=== PATIENT | male | born 1965 | race Caucasian/White ===

== ENCOUNTER → 2024-02-20 11:05 | Outpatient (REF) | payer OTHER, SELFPAY | LOC: RAD 11:05 | PROVIDERS: ATTENDING PHYSICIAN Nurse Practitioner Family; FAMILY PHYSICIAN Family Medicine | DX: R22.42 Localized swelling, mass and lump, left lower limb (principal) | CPT/HCPCS: 93971 ==

== ENCOUNTER → 2024-03-10 13:17 | Outpatient (REF) | payer OTHER, SELFPAY | LOC: RCS 13:17 | PROVIDERS: ATTENDING PHYSICIAN Internal Medicine Cardiovascular Disease; FAMILY PHYSICIAN Family Medicine | DX: I34.1 Nonrheumatic mitral (valve) prolapse (principal); I34.0 Nonrheumatic mitral (valve) insufficiency | CPT/HCPCS: 93306 ==

== ENCOUNTER 2024-04-15 06:48 | Day surgery (SDC) | payer OTHER, SELFPAY ==
[2024-04-09 08:19] VITALS: BMI 32.7
== END 2024-04-15 09:11 | disposition home or self-care (01) ==
LOC: CATH 06:48
PROVIDERS: ATTENDING PHYSICIAN Internal Medicine; FAMILY PHYSICIAN Family Medicine; OTHER PHYSICIAN Internal Medicine Cardiovascular Disease
DX: I34.1 Nonrheumatic mitral (valve) prolapse (principal); I34.0 Nonrheumatic mitral (valve) insufficiency; I10 Essential (primary) hypertension; E78.5 Hyperlipidemia, unspecified; I25.10 Atherosclerotic heart disease of native coronary artery without angina pectoris; E11.9 Type 2 diabetes mellitus without complications; Z79.84 Long term (current) use of oral hypoglycemic drugs; Z95.5 Presence of coronary angioplasty implant and graft; Z79.82 Long term (current) use of aspirin; Z79.899 Other long term (current) drug therapy; G47.33 Obstructive sleep apnea (adult) (pediatric)
CPT/HCPCS: 93312; 93320; 93325; 93005

== ENCOUNTER 2024-04-24 06:24 | Day surgery (SDC) | payer OTHER, SELFPAY ==
[2024-04-24] VITALS (8 sets, daily range): BP systolic 113–136; BP diastolic 71–93; BMI 31.7; BMI 31.6
[2024-04-24] MEDS: LOW STRENGTH ASPIRIN 81 MG PO (07:31)
[2024-04-24 07:33] LABS: Glucose - Point of Care 91 mg/dl (70-99)
--- NOTE | 2024-04-26 09:10 | ITS.CL.CATH ---
Allergy Specialist - Catheterization
Cardiac Catheterization
Procedure Report:
CARDIAC CATHETERIZATION REPORT
Date of Procedure: 04/24/24
Referring: Dr. Dominic Ferraro MD
INDICATION: mitral regurgitation, coronary artery disease
PROCEDURE:
1. Left heart catheterization.
2. Coronary angiography.
ACCESS:
6 Dutch right radial artery.
CATHETERS:
1. 6 Dutch JR4.
2. 6 Dutch JL3.5
HEMODYNAMIC DATA
LVEDP ~20 mmHg with A-wave to 30 mmHg
CORONARY ANGIOGRAPHY
Dominance: right
Left Main: normal
LAD: gives rise to a three diagonal branches and wraps around the apex. There is a patent stent in the distal LAD and otherwise mild luminal irregularities.
LCx: gives rise to a small OM1 and large OM2. There is a widely patent stent extending from the proximal LCx into the large OM2 and otherwise mild luminal irregularities.
RAD: large vessel that gives rise to a large posterolateral system. There is a widely patent stent in the mid-RCA and otherwise mild luminal irregularities.
Closure Device: TR band
CONCLUSIONS
1. Non-obstructive coronary artery disease with patent stents in the LAD, LCx, and RCA.
2. Elevated LV filling pressure.
RECOMMENDATIONS:
1. Expectant management after cardiac catheterization via right radial approach.
2. Aggressive secondary prevention of coronary artery disease.
3. Proceed with planned mitral valve repair.
Copy to: Dr. Dominic Ferraro MD; BEATRIZ Fortune, [facility]
Signed: Ruben Pagan MD, PhD
== END 2024-04-24 11:03 | disposition home or self-care (01) ==
LOC: CATH 06:24
PROVIDERS: ATTENDING PHYSICIAN Student in an Organized Health Care Education/Training Program; FAMILY PHYSICIAN Family Medicine; OTHER PHYSICIAN Internal Medicine Cardiovascular Disease
DX: I34.0 Nonrheumatic mitral (valve) insufficiency (principal); I25.10 Atherosclerotic heart disease of native coronary artery without angina pectoris; Z95.5 Presence of coronary angioplasty implant and graft; I10 Essential (primary) hypertension; E78.5 Hyperlipidemia, unspecified; E11.9 Type 2 diabetes mellitus without complications; G47.33 Obstructive sleep apnea (adult) (pediatric); Z79.84 Long term (current) use of oral hypoglycemic drugs; Z79.82 Long term (current) use of aspirin; Z79.85 Long-term (current) use of injectable non-insulin antidiabetic drugs
CPT/HCPCS: 82962; 93458; C1894; Q9967

== ENCOUNTER → 2024-05-05 12:23 | Outpatient (REF) | payer OTHER, SELFPAY | LOC: RAD 12:23 | PROVIDERS: ATTENDING PHYSICIAN Thoracic Surgery (Cardiothoracic Vascular Surgery); FAMILY PHYSICIAN Family Medicine | DX: Z01.818 Encounter for other preprocedural examination (principal) | CPT/HCPCS: 71275; 74174; Q9967 ==

== ENCOUNTER 2024-05-15 05:21 | Inpatient (IN) | payer OTHER, SELFPAY ==
[2024-04-23 09:41] LABS: % Basophils 1.4 % (0-2); % Eosinophils 4.7 % (0-6); % Immature Granulocytes 0.3 % (0-0.5); % Lymphocytes 20.3 % (20.5-51.1); % Monocytes 7.1 % (1.7-9.3); % Neutrophils 66.2 % (42.2-75.2); Absolute Basophils 0.1 10^3/uL (0-0.2); Absolute Eosinophils 0.3 10^3/uL (0-0.7); Absolute Lymphocytes 1.4 10^3/uL (1.2-3.4); Absolute Monocytes 0.5 10^3/uL (0.1-0.6); Absolute Neutrophils 4.4 10^3/uL (1.4-6.5); Hemoglobin 15.1 g/dL (13.0-18.0); Mean Corp Hgb Conc. 33.6 g/dL (33.0-37.0); Mean Corpuscular Hgb 28.8 pg (27.0-31.0); Mean Corpuscular Volume 85.7 fL (80.0-94.0); Mean Platelet Volume 9.8 fL (7.4-10.4); Nucleated Red Blood Cells % 0 % (-); Platelet Count 205 10^3/uL (130-400); Red Blood Cell Count 5.25 10^6/uL (4.70-6.10); Red Cell Dist. Width 14.6 % (11.5-14.5); White Blood Cell Count 6.6 10^3/uL (4.8-10.8)
[2024-04-23 09:43] LABS: Urine Albumin Negative (Neg - Trace); Urine Bilirubin Negative (Negative); Urine Character Clear (Clear); Urine Color Yellow; Urine Glucose Negative (Negative); Urine Ketone 1+ (Negative); Urine Leukocyte Trace (Negative); Urine Nitrite Negative (Negative); Urine Occult Blood Negative (Negative); Urine Urobilinogen Negative (Neg - 1+)
[2024-04-23 09:49] LABS: PT 13.2 Sec (11.4-14.6)
[2024-04-23 09:50] LABS: APTT 29.7 Sec (23.4-35.0)
[2024-04-23 10:31] LABS: ALT (SGPT) 24 U/L (0-50); AST (SGOT) 25 U/L (17-59); Albumin 4.7 g/dl (3.5-5.0); Alkaline Phosphatase 81 U/L (38-126); Blood Urea Nitrogen 21 mg/dl (9-20); Calcium 9.7 mg/dl (8.4-10.2); Carbon Dioxide 24 mmol/L (22-30); Chloride 106 mmol/L (98-107); Direct Bilirubin 0.2 mg/dl (0.0-0.4); Glucose 92 mg/dl (70-99); Potassium 4.3 mmol/L (3.5-5.1); Sodium 138 mmol/L (135-145); Total Bilirubin 0.7 mg/dl (0.2-1.3); Total Protein 7.1 g/dl (6.3-8.2); eGFR > 60.00
[2024-04-23 10:33] LABS: Urine Mucus Few
[2024-04-23 10:34] LABS: Urine Squamous Cell 0-2 /LPF (Few); Urine Uric Acid Crystals Seen
[2024-04-23 10:35] LABS: Urine Red Blood Cell 0-2 /HPF (0-2); Urine White Cell 0-2 /HPF (0-5)
[2024-04-23 11:14] VITALS: BMI 30.1
[2024-04-23 12:23] LABS: Glycohemoglobin (HgbA1c) 5.2 % (4.0-5.6)
--- NOTE | 2024-04-23 16:10 | CM ---
spoke to pt in PAT's, he is prev indep, lives with his in a 2 story home with 1 step to enter. he denies any dc planning needs. he has the ct surgery bbok , soap and instructions. he is agreeable to a f/u visit from the ct transitional care
nurse after dc. cm role explained and all questions answered. plan is for MVR 05/25.
[2024-05-14 06:00] VITALS: BMI 29.7
[2024-05-15] VITALS (11 sets, daily range): BP systolic 98–142; BP diastolic 42–93; BMI 29.7
[2024-05-15] MEDS: PROTONIX 40 MG PO (06:12)
[2024-05-15] MEDS: BACTROBAN 2% OINTMENT 1 APPLIC NASAL ×2 (06:12→19:35)
[2024-05-15] MEDS: MAGNESIUM OXIDE 500 MG PO (06:12)
--- NOTE | 2024-05-15 06:21 | W.PN.UPDATE ---
Update Note
Progress Note Update
-preop BB is contraindicated d/t bradycardia (hr 58). Pt had his usual Toprol XL 25 mg last night.
--- NOTE | 2024-05-15 06:25 | W.CVOR.SURPR ---
CVOR Surgeon Immed Pre Op
-
I have examined this patient prior to performance of the scheduled procedure.
The patient's condition is unchanged from the time of the dictated/written History and
Physical and the patient is able to undergo the scheduled procedure.
MV Repair +/- KIRSTIN Clip (risks discussed vs benefts)
--- NOTE | 2024-05-15 06:38 | PTCARENOTE ---
Addendum entered by Gissel Campuzano RN 05/15/24 06:53:
Lopressor not given this am. Pt took Toprol XL dose at 2300 last night. HR 58-60. discussed with Willem BLANCHARD. Orders given to hold Lopressor PreOp.
Original Note:
Pt arrived to unit 0510. VS obtained. Pt clipped and prepped per CVICU/CVOR protocol. CHG wipes completed. Dr. Amaya in room at 0600. Preoperative medication given. Pt taken to CVOR at 0630.
[2024-05-15 07:12] LABS: ACT+ - POC 90 Seconds (82-134)
[2024-05-15 07:27] LABS: Urine Albumin Negative (Neg - Trace); Urine Bilirubin Negative (Negative); Urine Character Clear (Clear); Urine Color Yellow; Urine Glucose Negative (Negative); Urine Ketone 1+ (Negative); Urine Leukocyte Negative (Negative); Urine Nitrite Negative (Negative); Urine Occult Blood 3+ (Negative); Urine Specific Gravity 1.025 (<1.030); Urine Urobilinogen Negative (Neg - 1+)
--- NOTE | 2024-05-15 07:30 | PTCARENOTE ---
Received pt from [facility], walking rounds completed. Pt in bed for assessment. PT is AAOx3, Sinus Omer on monitor. V-wire rate 30-10-2.0 no pacer spikes noted, B/P 112/73, HR 50's, pulses palpable, generalized edema throughout. Lungs clear,
bilaterally diminished in bases. POX 97% on 2L, C/T dressing C/D/I, C/T drainage is red in appearance. Pham present, urine is clear, yellow. Hypoactive B/S. I/J cordis with slick catheter, L radial arterial line present, pressure bag and saline
flush. Flushes without difficulty, zeroed and calibrated, wave form within normal limits. Pain management with Oxycodone and IV Dilaudid. Plan of care discussed with pt, pt agrees with plan. Pt resting in bed, family at bedside. Assessment as
documented.
[2024-05-15 07:45] LABS: Urine Mucus Few
[2024-05-15 07:46] LABS: Urine Bacteria Few (Negative); Urine Red Blood Cell 26-30 /HPF (0-2)
--- NOTE | 2024-05-15 07:55 | W.PN.CD ---
Today's Communication / Plan
-
Surgery today.
Impression / Plan
-
Impression/Plan: 58 y/o male with HTN, HLD, CAD s/p prior PCI and MVP with severe MR admitted for elective MVR.
#MVP with severe MR
-Chronic, stable.
-Plan for MVR today.
-Anticipate routine post operative course.
-Wean vent to extubate.
-Wean pressors/inotropes for MAP > 65 mmHg, CI > 2.2.
-Pain/chest tube management per CTS.
#CAD
-Chronic, stable.
-Continue aspirin, atorvastatin and metoprolol when taking PO.
#HTN
-Chronic, stable.
-Adjust home medications post operatively.
#HLD
-Chronic, stable.
-Resume atorvastatin when taking PO.
-Goal LDL < 55.
#NIDDM
-Chronic, stable.
-Management per CTS (insulin gtt).
-Resume metformin when we are satisfied with stable renal function.
Subjective/Interval History:
Surgery today.
DATA:
Cardiac Catheterization, 04/26/2024:
CONCLUSIONS
1. Non-obstructive coronary artery disease with patent stents in the LAD, LCx, and RCA.
2. Elevated LV filling pressure.
FREDI, 04/15/2024:
CONCLUSIONS
-Mildly dilated left ventricle. Left ventricular ejection fraction is 60-65%.
-Minimally thickened mitral valve leaflets with moderate prolapse of the P2
segment with a subtle flail portion at the leaflet tip, causing likely severe,
eccentric (anteriorly directed) mitral regurgitation (Coanda effect is noted).
Physical Exam
Vital Signs/Labs
Vital Signs
BP Pulse Ox
142/93 95
05/15/24 05:22 05/15/24 05:21
05/13/24 05/14/24 05/15/24
11:59 11:59 11:59
Actual Weight 102.2 kg 102.2 kg
04/23/24 09:12
04/23/24 09:12
PT 13.2 Sec (11.4-14.6) 04/23/24 09:12
INR 1.00 04/23/24 09:12
APTT 29.7 Sec (23.4-35.0) 04/23/24 09:12
Physical Exam
Patient appears comfortable.
Remainder of exam deferred at Dr. Amaya's request.
Data Reviewed
-
Date of Service: May 15, 2024
Medical Decision Making: Reviewed Test Results, Test Interpretation and Review of Case with other Provider
EKG: Tracing Personally Visualized and interpreted and Report Reviewed by me
Echo: Report Reviewed by me
X-Ray/CT/US/MRI/NUC/PET: Image Personally Visualized and interpreted and Report Reviewed by me
Medical Tests (PFT, Pathology etc): Report Reviewed by me
Labs: Labs Reviewed by me
Old Records: Reviewed
[2024-05-15 09:05] LABS: B.E. - POC -1.1 mmol/L; Glucose - POC 97 mg/dl (70-99); HCO3 - POC 26 mmol/L (21-29); Hematocrit - POC 39 % PCV (42-52); Hemodilution- POC Yes; Hemoglobin Calculated - POC 13.3; Ionized Calcium - POC 1.27 mmol/L (1.12-1.27); PCO2 - POC 52 mmHg (35-45); PO2 - POC 116 mmHg (80-100); POC Comment PRE; Potassium - POC 3.7 mmol/L (3.6-5.0); Sodium - POC 143 mmol/L (135-145); pH - POC 7.31 (7.35-7.45)
[2024-05-15 09:35] LABS: B.E. - POC 0.6 mmol/L; Glucose - POC 149 mg/dl (70-99); HCO3 - POC 25 mmol/L (21-29); Hematocrit - POC 31 % PCV (42-52); Hemodilution- POC Yes; Hemoglobin Calculated - POC 10.4; Ionized Calcium - POC 1.07 mmol/L (1.12-1.27); O2 Saturation %Calculated-POC 99.9 5 (92-96); PCO2 - POC 37 mmHg (35-45); PO2 - POC 333 mmHg (80-100); POC Comment CPB; Potassium - POC 5.1 mmol/L (3.6-5.0); Sodium - POC 139 mmol/L (135-145); pH - POC 7.44 (7.35-7.45)
[2024-05-15 10:00] LABS: ACT+ - POC 791 Seconds (82-134)
[2024-05-15 10:00] LABS: ACT+ - POC 902 Seconds (82-134)
[2024-05-15 10:10] LABS: B.E. - POC -0.4 mmol/L; Glucose - POC 145 mg/dl (70-99); HCO3 - POC 25 mmol/L (21-29); Hematocrit - POC 33 % PCV (42-52); Hemodilution- POC Yes; Hemoglobin Calculated - POC 11.4; Ionized Calcium - POC 1.13 mmol/L (1.12-1.27); O2 Saturation %Calculated-POC 98.4 5 (92-96); PCO2 - POC 41 mmHg (35-45); PO2 - POC 113 mmHg (80-100); POC Comment CPB; Potassium - POC 4.2 mmol/L (3.6-5.0); Sodium - POC 140 mmol/L (135-145); pH - POC 7.39 (7.35-7.45)
[2024-05-15 10:22] LABS: ACT+ - POC 537 Seconds (82-134)
--- NOTE | 2024-05-15 10:55 | CM ---
pt in OR today, cm to follow.
[2024-05-15 11:03] LABS: B.E. - POC -1.8 mmol/L; Glucose - POC 161 mg/dl (70-99); HCO3 - POC 26 mmol/L (21-29); Hematocrit - POC 36 % PCV (42-52); Hemodilution- POC Yes; Hemoglobin Calculated - POC 12.4; Ionized Calcium - POC 1.16 mmol/L (1.12-1.27); O2 Saturation %Calculated-POC 99.8 5 (92-96); PCO2 - POC 54 mmHg (35-45); PO2 - POC 248 mmHg (80-100); POC Comment WARM; Potassium - POC 4.2 mmol/L (3.6-5.0); Sodium - POC 144 mmol/L (135-145); pH - POC 7.29 (7.35-7.45)
[2024-05-15 11:06] LABS: ACT+ - POC 96 Seconds (82-134)
[2024-05-15 11:17] LABS: B.E. - POC -4.1 mmol/L; Glucose - POC 121 mg/dl (70-99); HCO3 - POC 22 mmol/L (21-29); Hematocrit - POC 36 % PCV (42-52); Hemodilution- POC Yes; Hemoglobin Calculated - POC 12.2; Ionized Calcium - POC 1.29 mmol/L (1.12-1.27); PCO2 - POC 44 mmHg (35-45); PO2 - POC 77 mmHg (80-100); POC Comment POST; Potassium - POC 3.6 mmol/L (3.6-5.0); Sodium - POC 143 mmol/L (135-145); pH - POC 7.31 (7.35-7.45)
[2024-05-15 11:25] LABS: B.E. - POC -15.5 mmol/L; Glucose - POC 40 mg/dl (70-99); HCO3 - POC 10 mmol/L (21-29); Hematocrit - POC 15 % PCV (42-52); Hemodilution- POC Yes; Hemoglobin Calculated - POC 5.1; Ionized Calcium - POC 0.46 mmol/L (1.12-1.27); O2 Saturation %Calculated-POC 74.2 5 (92-96); PCO2 - POC 22 mmHg (35-45); PO2 - POC 43 mmHg (80-100); POC Comment MIXED VENOUS; Potassium - POC 4.4 mmol/L (3.6-5.0); Sodium - POC 130 mmol/L (135-145); pH - POC 7.27 (7.35-7.45)
--- NOTE | 2024-05-15 11:28 | W.PN.CT.SURG ---
Addendum entered and electronically signed by Anton Amaya MD 05/15/24 11:52:
Procedure(s) Performed:
1. Right mini thoracotomy with right common femoral artery and left common femoral vein cannulation under FREDI guidance
2. Radical mitral valve repair (34 mm band annuloplasty, triangular resection of P2 into P1, reapproximation of P1 and P2 primarily, single [place]-Roland cord placed at the anterior lateral papillary muscle head to the P1 P2 segment)
3. Placement temporary ventricular pacing wires
4. Trans esophageal echocardiography
5. Left atrial appendage exclusion (first a 35 mm clip was applied which appeared to be too small, I then place a 45 mm clip to follow which had good result)
Date of Surgery: 05/15/2024
Original Note:
CT Surgery Operative Note
-
CARDIAC SURGERY OPERATIVE REPORT
Preoperative Diagnosis: Myxomatous mitral valve degeneration with severe insufficiency, symptomatic
Postoperative Diagnosis: Same
Procedure(s) Performed:
1. Right mini thoracotomy with right common femoral artery and left common femoral vein cannulation under FREDI guidance
2. Radical mitral valve repair (36 mm band angioplasty, dry resection of P2 into P1, reapproximation of P1 and P2, single [place]-Roland cord placed at the anterior lateral papillary muscle head to the P1 P2 segment)
3. Placement temporary ventricular pacing wires
4. Trans esophageal echocardiography
5. Left atrial appendage exclusion (first a 35 mm clip was applied which appeared to be too small, I then place a 45 mm clip to follow which had good result)
Date of Surgery: 05/15/2020
Comorbidities:
1. 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
2. Severe mitral valve insufficiency, symptomatic
3. Dilated left atrium and annulus
4. History of coronary artery disease with multiple stents in the past, previous ID
5. Sleep apnea on CPAP
6. Nephrolithiasis
7. History of GI bleed
8. Hypertension
9. Hyperlipidemia
10. Non-insulin diabetes mellitus
Attending Surgeon: Anton Amaya MD, MS
Assistants: Annelise Zhao PA-C (present and necessary for retraction, suctioning, exposure, suture management, wound closure, etc. under my direction)
Anesthesiology: Arvin Georges MD and Harika Sevilla CRNA
Scrub and Circulating RNs: Chico Reyes, RN, Charlotte Huber, RN
Rate Clerk: Annelise Bess CCP
Anesthesia: GETA
EBL: per perfusion records
Products: None
CPB Time: 126 minutes
Aortic Cross Clamp Time: 95 minutes
Indication(s) for Procedures: This is a 58-year-old male with known mitral valve insufficiency. He has a significant history for multivessel coronary disease status post multiple stents in the past. He recent underwent a transesophageal
echocardiogram demonstrated worsening mitral valve insufficiency consistent with myxomatous degeneration and prolapse of the P2 into P1 segment along with a flail leaflet with multiple torn cords. His symptoms are relatively mild, he states that he
feels significant better after losing a lot of weight and controlling his A1c. Given the severity of his mitral valve insufficiency, the very repairability of his valve, he meets stage C symptomatology and therefore class II indication for mitral
valve intervention.
Mitral Valve Description: Degenerative mitral valve disease with significant prolapse of P2 into the P1 scallop along with multiple torn cords. There is bileaflet thickening. There is also asymmetric dilation of his annulus in the large left
atrium.
Implants:
1. 34mm REYNOLDS Physio Flex, SN [id number]
2. 35mm KIRSTIN Clip, SN [id number]
3. 45mm KIRSTIN Clip, SN [id number]
4. Single CV 4-0 Goretex
Specimen:
1. P2 Scallop
Findings: His left ventricular ejection fraction preoperatively was 60% with no regional wall motion abnormalities. Following surgery his EF remained the same at 60% with no new regional wall motion abnormalities. A [place] was unable to be floated
at the beginning of the case and so we left it out. His mitral valve was repaired using a combination of root triangular resection of P2 into P1 and then reapproximation of the leaflets primarily using 5-0 Prolene in interrupted fashion. An
additional CV 4 [place]-Roland cord was placed to the anterolateral And muscle head to the P1 P2 segment as a support structure. A total 11 nonpledgeted 2 Ethibond sutures were placed along the annulus from trigone to trigone and secured a 34 mm band
using core knots. Dynamic inflation of the left ventricle demonstrated a good coaptation margin does relatively posterior and of appropriate height when the ink test was applied. His left atrial appendage was verified to be free of any thrombus or
debris preoperatively. Initially I placed a 35 mm clip across his base however this was insufficient at length. A new 45 mm clip was then applied with good effect. After coming off of cardiopulmonary bypass, there is no residual mitral valve
insufficiency, no systolic anterior motion of the leaflets, no regional wall motion abnormalities. The mean gradient across the mitral valve is 1 mmHg. He did not require any inotropic support. He did not require any blood products. He was in
sinus rhythm.
Description of Procedure: The patient was brought to the operating room and placed supine in the table with their right side bumped up and right arm down. Arterial and central access was performed by anesthesiology. The patient was prepped from chin
to toes in the typical sterile fashion. Trans esophageal evaluation of cardiac function and all valvular structures was conducted. Before commencing, a time out was performed by all members of the team. All were in agreement with the procedure and
laterality and I proceeded. A small right groin incision was made to expose the common femoral artery and and I percutaneously accessed the left common femoral vein using micropuncture and ultrasound with Seldinger technique. A total of 55,000 units
of heparin was given. A 5-6 cm right lateral thoracotomy was performed over the 4th intercostal space verified by visualization of the hilum. The common femoral artery and vein were cannulated under transesophageal guidance using Seldinger
technique. The arterial line was verified to have an appropriate bounce and pressure correlating with testing. Once the ACT was above 400, retrograde autologous priming was done and we commenced cardiopulmonary bypass. Target core temperature was
34�C.
Carbon dioxide was used to flood the field. The course of the phrenic nerve was identified to prevent injury. The pericardium was opened and two stay sutures were placed to facilitate a ``pericardial table.�� The oblique sinus was developed followed
by the inter atrial groove. An antegrade root vent was inserted and secured with a pursestring suture. The pump flow and mean arterial pressure were lowered and an aortic cross clamp was applied to the ascending aorta. A total of 1.2L initial dose
of Antegrade cardioplegia was delivered. We had rapid electro myocardial quiescence at 300 cc of cardioplegia. The ventricle was monitored for distension by echocardiogram during this time. The left atrium was incised and enlarged. Next I looked
through the transverse sinus and elevated the aorta anteriorly. The left atrial pannus was visualized and clipped accordingly A left atrial lift retractor was placed. The mitral valve was inspected. The mitral valve was repaired as described above.
The left atriotomy was closed with 3-0 prolene in a running fashion leaving a ventricular vent in place to de-air. After filling the heart, the vent was removed and the prolene was secured with a corknot. Unipolar ventricular pacing wire was placed
on the base of the right ventricle. The patient was placed into Trendelenburg position and pump flows were lowered. The clamp was slowly removed with the root vent turned on. De-airing maneuvers were performed. We started to rewarm with a target of
36.5�C.
As the heart recovered, the mitral valve and ventricular function were assessed under transesophageal echocardiogram. The LV vent and root vents were removed. Once weaning parameters were satisfactory, cardiopulmonary bypass flow was lowered until
we were off cardiopulmonary bypass the mitral valve was inspected again. All surgical sites were inspected for hemostasis and appeared appropriate. The lines were clamped and the arterial was relocated to the venous cannula to give back volume. A
test dose of protamine was delivered and patient was monitored for any adverse reactions followed by complete protamine dosing. The femoral vessels were decannulated and repaired as indicated. The pericardium was approximated with 2-0 ethibond
sutures secured with corknots. One 19F Polo drain remained in the pleural space and threaded into the pericardium. There was an excellent palpable distal to the [employer]ORDIN[employer] cannulation site. Local analgesia was injected to the thoracotomy. The incision was
closed in layers in a running fashion.
All instrument, sponge, and needle counts were confirmed to be correct x 2 at the end of the operation. The patient was transferred to the cardiac intensive care unit in critical but stable condition.
I, Dr. Anton Amaya, was present, scrubbed for, and performed all critical elements of this procedure.
Anton Amaya MD, MS
Cardiothoracic Surgeon
[facility]
This dictation was created using the [employer] dictation system. Please excuse any grammatical, typographical, or 'sound alike' errors
[2024-05-15 11:46] LABS: Glucose - Point of Care 118 mg/dl (70-99)
[2024-05-15] MEDS: NEURONTIN PO (11:55)
[2024-05-15] MEDS: ANCEF 10 IV ×2 (11:55)
[2024-05-15] MEDS: NOVOLOG FLEXPEN SC ×3 (11:55→15:57)
[2024-05-15 11:56] LABS: Hemoglobin 13.5 g/dL (13.0-18.0); Platelet Count 172 10^3/uL (130-400)
[2024-05-15] MEDS: NSS 500 IV (11:56)
[2024-05-15] MEDS: SENOKOT-S PO ×2 (11:56→15:33)
[2024-05-15 12:00] LABS: B.E. -2.1 mmol/L; HCO3 24.7 mmol/L (21-28); Ionized Calcium 1.26 mMOL/L (1.15-1.33); O2 Saturation % 98.3 % (94-98); PCO2 49 mmHg (35-48); PO2 105 mmHg (83-108); Potassium 4.3 mMOL/L (3.5-5.1); Sodium 137 mMOL/L (136-145); pH 7.31 (7.35-7.45)
--- NOTE | 2024-05-15 12:00 | PTCARENOTE ---
Patient received from CVOR s/p HP MV repair. VSS - SB via cm, SaO2 @ 100% on ventilator, titrating FiO2 as able. RIJ Cordis w/slic extension (CVP transduced), L radial arterial line - leveled, flushed, and calibrated w/good waveforms returned.
Epicardial V-wire to pulse generator, off. R pleural chest tube to -20cm suction, no air leak noted. Pham catheter to gravity. All procedural sites stable. See work list for full assessment, interventions performed, and intravenous infusions and
titrations.
[2024-05-15 12:06] LABS: INR 1.37; PT 16.7 Sec (11.4-14.6)
[2024-05-15 12:07] LABS: APTT 26.8 Sec (23.4-35.0)
[2024-05-15] MEDS: DILAUDID 0.5 MG IV ×3 (12:16→21:19)
[2024-05-15 12:22] LABS: Mixed Venous O2 Saturation 77.8 %
[2024-05-15] MEDS: DEMEROL 12.5 MG IV (12:44)
[2024-05-15 12:48] LABS: Blood Urea Nitrogen 21 mg/dl (9-20); Estimated Creatinine Clearance 83 ml/min; Glucose 124 mg/dl (70-99); Magnesium 3.7 mg/dl (1.6-2.3)
[2024-05-15 13:01] LABS: Glucose - Point of Care 151 mg/dl (70-99)
[2024-05-15 13:07] LABS: B.E. -4.7 mmol/L; HCO3 20.4 mmol/L (21-28); O2 Saturation % 98.6 % (94-98); PCO2 37 mmHg (35-48); PO2 93 mmHg (83-108); pH 7.35 (7.35-7.45)
--- NOTE | 2024-05-15 13:17 | W.PN.UPDATE ---
Update Note
Progress Note Update
IV fluids: 1300
U.O.:� 450
Blood:� none
Wires:� 2 V-wires
Gtts:� Insulin @ 0.5, Precedex @ 0.5
�
NEURO: sedated on Precedex, pupils +2mm B/L
RESP: #8OT @24cm> 500/60%/14/10. Lungs clear B/L. R pleural (5cc on arrival) chest tubes to -20cm suction. Sanguineous drainage
CV: RRR +S1, S2, no S3, no�rub, no murmur. Dermabond to right mini thoracotomy. RIJ w/[place]
ABD: round, soft, no BS
EXT: no edema, +2/4 DP pulses B/L, no femoral bruit; B/L femoral cannulation sites intact (left groin with stitch intact);left radial A-line intact
: Pham with clear yellow urine
�
A/P: POD #0 s/p Radical mitral valve repair (#34 mm band annuloplasty, triangular resection of P2 into P1, reapproximation of P1 and P2 primarily, single [place]-Roland cord placed at the anterior lateral papillary muscle head to the P1 P2 segment); Left
atrial appendage exclusion (#45 mm clip)
FREDI: EF�%%%, no MR, MV 4/1mmHg
- wean and extubate
- continue ASA for mitral repair
- CUT TEMPORARY PACING WIRES+++
- will need instruction regarding antibiotic prophylaxis for dental and invasive procedures
- Left groin suture needs to be removed prior to discharge++++
�
# HTN
- resume Amlodipine as BP permits
�
# T2DM (A1C 5.2)
- insulin infusion x 24h and transition to SSI
- resume Metformin/Mounjaro
�
# Hyperlipidemia
- resume�Lipitor 80mg daily
--- NOTE | 2024-05-15 13:23 | RESPNOTE ---
Patient extubated to a 6L nasal cannula following CPAP trial and ABG. IS instruction completed
--- NOTE | 2024-05-15 13:25 | PTCARENOTE ---
Patient displayed evidence overbreathing ventilator - CPAP wean initiated. No apnea noted, good TV, good SaO2. ABG obtained, results conveyed to TAMIKO Cher. Patient extubated to 6lnc w/out incident.
--- NOTE | 2024-05-15 13:40 | CON.INTV ---
Consultation
Consultation Request
Date/Time Consultation Requested: 05/15
Date/Time Consultation Performed: 05/15
Reason for Consultation: Critical care
Medical History
-
History of Present Illness:
History primarily obtained from the chart, reviewing outpatient records, history from patient and at bedside. Patient is a 58-year-old male with with history of multivessel coronary disease with multiple stents in the past mitral valve
prolapse. Workup revealed worsening mitral valve disease, with small flail segment. EF was normal. Cardiac catheterization revealed nonobstructive coronary disease with patent stents. He did have elevated filling pressures. Patient underwent
right minithoracotomy with right common femoral and left common femoral cannulation, radical mitral valve repair with band annuloplasty, [place]-Roland cord placed. Left atrial appendage exclusion clip. Patient is presently extubated, answering
questions. at bedside. Patient is not requiring pressors. We are asked to help from critical care standpoint
.
PMH: Oral history of coronary disease, status post 4 stents, nephrolithiasis, umbilical hernia, hypertension, hyperlipidemia, non-insulin diabetes improved with weight loss, sleep apnea on CPAP
Past Medical History
Past Medical History: None (See above)
Past Surgical History: None (See above)
Social History
Tobacco: Non-smoker
Alcohol: Occasional
Drug: None
Personal:
Living: With Family
Employment: Employed (Sales)
Family History
Family History: Other (Father age 75, mother age 81. Siblings and children healthy)
Allergies / Home Medications
Allergies
Allergy/AdvReac Type Severity Reaction Status Date / Time
No Known Allergies Allergy Verified 04/24/24 07:37
Home Medications
�Medication �Instructions �Recorded �Confirmed �Last Taken �Type
nitroglycerin 0.4 mg sublingual 0.4 mg sublingual [id number] PRN 10/11/16 04/24/24 11/19/16 15:00 Rx
tablet chest pain or SBP > 150 mmHg #25 mg
metoprolol tartrate 25 mg tablet 25 mg PO HS Blood Pressure 01/29/20 05/15/24 05/14/24 History
1700
amlodipine 10 mg tablet 10 mg PO HS BLOODPRESSURE 04/06/24 05/15/24 05/12/24 23:00 History
atorvastatin 80 mg tablet 80 mg PO HS CHOLESTEROL 04/06/24 05/15/24 05/14/24 17:00 History
metformin 1,000 mg tablet 1,000 mg PO QPM DM 04/06/24 05/15/24 05/13/24 23:00 History
tirzepatide 2.5 mg/0.5 mL 2.5 mg SC MO WEIGHT LOSS, DM 04/06/24 05/15/24 05/06/24 17:00 History
subcutaneous pen injector
(Liu)
aspirin 81 mg chewable tablet 81 mg PO HS BLOOD THINNER 04/21/24 05/15/24 05/14/24 History
1700
CoQ-10 caplet PO DAILY 05/15/24 05/14/24 17:00 History
fiber 05/15/24 05/14/24 History
1700
multivitamin 05/15/24 05/14/24 History
0800
Review of Systems
Vitals / Labs / Diagnostic Testing
Vital Signs
Temp Pulse Resp BP Pulse Ox
98.6 F 64 17 125/78 97
05/15/24 13:00 05/15/24 13:02 05/15/24 13:00 05/15/24 12:02 05/15/24 13:02
Lab Data
05/15/24 11:44
Laboratory Results
05/15/24 05/15/24
11:44 13:01
PT 16.7 H
INR 1.37
APTT 26.8
pH 7.31 L 7.35
pCO2 49 H 37
pO2 105 93
HCO3 24.7 20.4 L
O2 Delivery Level
Diagnostic Testing:
Physical Exam
-
HEENT: Normocephalic, Anicteric and Other (Right IJ)
Cardiovascular: S1/S2, Regular Rhythm, Murmur (n) and Rub (n)
Respiratory: Wheeze (n), Rales (n), Rhonchi (n) and Non-Labored Respirations
GI: Soft and Non Distended
Neurology: Awake (Waking up from anesthesia)
Skin: Good Color and Other (No clubbing)
General: Comfortable
Assessment
-
58-year-old male with history of hypertension, hyper lipidemia, coronary disease with history of bypass surgery, now presents with worsening mitral regurgitation, torn cord status post radical mitral valve repair, left atrial clip 05/15/2024
S/p radical mitral valve repair
05/15/2024
Mitral regurgitation, torn cord
History of coronary disease with complex stents
recent catheterization 04/24/2024, nonobstructive disease
Patent stents
Conditions present prior to admission
Hypertension/hyperlipidemia
History of diabetes, improved with weight loss
Sleep apnea on CPAP therapy
History of nephrolithiasis
History of rectal bleed
50 pound weight loss, intentional
Plan/recommendations
At this time, patient appears to be critically ill but stable. He is extubated. He is conversing able to provide history
Chest x-ray unremarkable
EKG with nonspecific changes
Hemoglobin stable at 13.5
Chest tube with minimal output
Moving forward
Continue with supportive care per CT surgery
Patient looks remarkably well, conversing
Incentive spirometry, airway clearance, pain control
Patient does feel comfortable with his nasal CPAP mask
He can use this at his leisure, okay to connect to hospital BiPAP
Consider 06/13
Unaware of outpatient settings
Can resume CPAP upon discharge
Patient was last seen in the sleep clinic 2017
Has a new machine after recent recall
Followed by primary physician
Reviewed with critical care nursing, at bedside
Will follow
[2024-05-15] MEDS: TYLENOL PO (13:54)
[2024-05-15] MEDS: OFIRMEV 100 IV (13:57)
[2024-05-15 14:01] LABS: Glucose - Point of Care 133 mg/dl (70-99)
[2024-05-15 14:28] LABS: ACT+ - POC > 1003 Seconds (82-134)
[2024-05-15 15:04] LABS: Glucose - Point of Care 127 mg/dl (70-99)
[2024-05-15] MEDS: ROXICODONE 5 MG PO ×3 (15:12→23:57)
[2024-05-15] MEDS: LOW STRENGTH ASPIRIN 81 MG PO (15:12)
[2024-05-15] MEDS: PACERONE PO (15:42)
[2024-05-15 16:04] LABS: Glucose - Point of Care 118 mg/dl (70-99)
[2024-05-15 16:15] LABS: Hematocrit 37.9 % (39.0-52.0); Hemoglobin 12.9 g/dL (13.0-18.0); Platelet Count 155 10^3/uL (130-400)
[2024-05-15] MEDS: NEURONTIN 100 MG PO ×2 (16:58→21:22)
[2024-05-15] MEDS: ANCEF 5 IV (17:00)
[2024-05-15 18:01] LABS: Glucose - Point of Care 99 mg/dl (70-99)
[2024-05-15] MEDS: DILAUDID 0.25 MG IV ×2 (19:36→23:12)
[2024-05-15 20:08] LABS: Glucose - Point of Care 123 mg/dl (70-99)
[2024-05-15] MEDS: LIPITOR 80 MG PO (21:22)
[2024-05-15] MEDS: PACERONE 200 MG PO (21:23)
[2024-05-15] MEDS: TYLENOL 1000 MG PO (21:23)
[2024-05-15] MEDS: SENOKOT-S 1 TABLET PO (21:23)
[2024-05-15 22:42] LABS: Glucose - Point of Care 88 mg/dl (70-99)
[2024-05-15] MEDS: LR 250 ML IV (23:05)
--- NOTE | 2024-05-15 23:43 | PTCARENOTE ---
VSS. Sinus Omer with occasional PAC's on the monitor. Pt complaining of post surgical pain, pain mgnt given per protocol (see MAR). Pt in bed resting. Nursing assessment unchanged from prior.
[2024-05-15 23:55] LABS: Glucose - Point of Care 95 mg/dl (70-99)
[2024-05-16] VITALS (20 sets, daily range): BP systolic 102–140; BP diastolic 58–86; PULSE 56; O2SAT 94–98
[2024-05-16 02:06] LABS: Glucose - Point of Care 102 mg/dl (70-99)
[2024-05-16] MEDS: ANCEF 5 IV ×2 (02:07→10:12)
[2024-05-16] MEDS: DILAUDID 0.5 MG IV (02:08)
[2024-05-16] MEDS: DILAUDID 0.25 MG IV (03:42)
[2024-05-16 04:04] LABS: Glucose - Point of Care 94 mg/dl (70-99)
[2024-05-16 04:45] LABS: Hematocrit 37.7 % (39.0-52.0); Hemoglobin 12.6 g/dL (13.0-18.0); Mean Corp Hgb Conc. 33.4 g/dL (33.0-37.0); Mean Corpuscular Hgb 28.3 pg (27.0-31.0); Mean Corpuscular Volume 84.7 fL (80.0-94.0); Mean Platelet Volume 10.5 fL (7.4-10.4); Platelet Count 153 10^3/uL (130-400); Red Blood Cell Count 4.45 10^6/uL (4.70-6.10); Red Cell Dist. Width 14.7 % (11.5-14.5); White Blood Cell Count 15.1 10^3/uL (4.8-10.8)
--- NOTE | 2024-05-16 05:07 | PTCARENOTE ---
VSS, Pt in Sinus Omer with occasional PAC's. Pt given CHG bath and linens changed. Am lab work collected and sent. ECG completed. Portable chest xray to be completed. gunnar Pedro to be d/c'ed. Pt OOB to chair in am. Assessment and interventions
as documented.
[2024-05-16 05:10] LABS: Blood Urea Nitrogen 23 mg/dl (9-20); Calcium 8.9 mg/dl (8.4-10.2); Carbon Dioxide 20 mmol/L (22-30); Chloride 107 mmol/L (98-107); Estimated Creatinine Clearance 91 ml/min; Glucose 88 mg/dl (70-99); Magnesium 2.3 mg/dl (1.6-2.3); Potassium 4.5 mmol/L (3.5-5.1); Sodium 140 mmol/L (135-145); eGFR > 60.00
[2024-05-16] MEDS: ROXICODONE 5 MG PO ×2 (05:15→13:13)
[2024-05-16] MEDS: TYLENOL 1000 MG PO ×3 (05:16→21:34)
--- NOTE | 2024-05-16 05:29 | W.PN.CT ---
Today's Communication / Plan
-
-pod #1
-no significant issues overnight
-sinus adonay 50s with PACs and intermittent junctional rhythm- will hold BB and Amio
-drips: insulin
-CT output: R pleur 120/225 in 12/24 hrs, no air leak
-d/c slic
-d/c Pham
-continue insulin
-current meds (ASA, Lipitor, Protonix). Holding BB and Amio d/t adonay
-encourage IS, OOB
Assessment / Plan
-
- Severe symptomatic MR - s/p Right mini thoracotomy with Radical mitral valve repair (34 mm band annuloplasty); LAAE with 45 mm clip on 05/15/[address] Amaya, pod #1
- intraop FREDI: LVEF 60% preop and post with no wma. There was no residual mitral valve insufficiency, no systolic anterior motion of the leaflets, no regional wall motion abnormalities. The mean gradient across the mitral valve is 1 mmHg.
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
- Severe mitral valve insufficiency, symptomatic
- Dilated left atrium and annulus
- History of coronary artery disease with multiple stents in the past, previous MA
- Sleep apnea on CPAP
- Nephrolithiasis
- History of GI bleed
- Hypertension
- Hyperlipidemia
- Non-insulin diabetes mellitus (A1c 5.2)
- Acute postop blood loss anemia - stable, no transfusion
- Acute postop atelectasis
- Acute postop hypovolemia with subsequent hypervolemia
Discussed patient care with: Nursing and Care Team
Subjective
Procedure
- s/p Right mini thoracotomy with Radical mitral valve repair (34 mm band annuloplasty); LAAE with 45 mm clip on 05/15/[address] Amaya
-
Date of Service: May 15, 2024
Objective Data
-
Lab Results
05/15/24 16:02
05/15/24 11:44
PT 16.7 Sec (11.4-14.6) H 05/15/24 11:44
INR 1.37 05/15/24 11:44
APTT 26.8 Sec (23.4-35.0) 05/15/24 11:44
Vital Signs
Vital Signs
Temp Pulse Resp BP Pulse Ox
98.7 F 65 16 109/81 97
05/15/24 22:44 05/15/24 23:10 05/15/24 23:00 05/15/24 22:44 05/15/24 23:10
CT Intake/Output/Weight
05/15/24 05/15/24 05/16/24
06:59 18:59 06:59
Intake Total 300.8 / 387.6 86.8 / 387.6
Output Total 615 / 760 145 / 760
Balance -314.2 / -372.4 -58.2 / -372.4
SaO2: 97
Physical Exam
-
General: Awake and AOx3
Cardiovascular: Regular rate & rhythm, No Murmurs and No Rub
Respiratory: Decreased Breath Sounds
Sternum: Stable
Incision: Clean, Dry and Intact
Extremities: No Edema
Data Reviewed
-
Lab Results: Results Reviewed
Medications: Active Meds Reviewed
Chest X-Ray: Report Reviewed and Image Reviewed
ECG: Report Reviewed and Image Reviewed
[2024-05-16 06:12] LABS: Glucose - Point of Care 113 mg/dl (70-99)
--- NOTE | 2024-05-16 07:59 | W.PN.ANS.POP ---
Anesthesia Post Operative
- Anesthesia Post Op Note
Vital Signs Stable-See Nursing Note: Yes
Airway Patent: Yes
Adequate Pain Control: Yes
Change in Mental Status: No
Current Postoperative Nausea & Vomiting: No
Anesthesia Complications: No
General Anesthetic Recall: No
Unplanned Admission: No
Post Op Hydration Adequate: Yes
--- NOTE | 2024-05-16 08:18 | W.PN.INTV ---
Today's Communication / Plan
Recommendations
Pain control
Up OOB as tolerated
Encourage incentive spirometer use 10x/hr for at least 4 hrs a day
Patient has now been transferred to CVICU�telemetry. Accounting File Clerk/Pulmonary service will now sign off. Please reconsult if there are any additional questions/concerns, or if patient's respiratory status deteriorates.
Assessment
-
58-year-old male with history of hypertension, hyper lipidemia, coronary disease with history of bypass surgery, now presents with worsening mitral regurgitation, torn cord status post radical mitral valve repair, left atrial clip 05/15/2024
S/p radical mitral valve repair + KIRSTIN�exclusion
OR date: 05/15/2024
Mitral regurgitation, torn cord
History of coronary disease with complex stents
recent catheterization 04/24/2024, nonobstructive disease
Patent stents
Conditions present prior to admission
Hypertension/hyperlipidemia
History of diabetes, improved with weight loss
Sleep apnea on CPAP therapy
History of nephrolithiasis
History of rectal bleed
50 pound weight loss, intentional
Plan/recommendations
At this time, patient is stable, on room air breathing comfortably and off of insulin drip and chest tubes have been removed.
Chest x-ray from today shows mild bibasilar subsegmental atelectasis
EKG from today shows sinus bradycardia with ventricular rate of 51 bpm
Hemoglobin stable at 12.6
Chest tubes removed today
Moving forward
Continue with supportive care per CT surgery
Patient looks remarkably well, conversing, is on room air breathing comfortably; he feels much better with his chest pain/back pain since the chest tubes were removed
Incentive spirometry encouraged, airway clearance, pain control
Continue with CPAP with sleep
Unaware of outpatient settings
Can resume his home CPAP upon discharge
Patient was last seen in the sleep clinic 2017
Has a new machine after recent recall
Followed by primary physician
Reviewed with critical care nursing, /daughters at bedside
[facility] Accounting File Clerk/Pulmonary service will now sign off. Thank you for allowing us to be involved in the care of this patient. Please reconsult if there are any additional questions/concerns, or if
patient's respiratory status deteriorates.
Total time spent today was 55 minutes for this encounter. Time includes reviewing laboratory test/imaging results, reviewing pertinent medical records, obtaining and reviewing medical history, performing an appropriate exam, ordering medications,
tests and procedures. Time also includes documentation of this encounter, coordinating patient care and communicating with other healthcare professionals. Total time does not include separately billed tests performed on this date of service.
Subjective Dataa
Subjective Data
Date of Service:
Date of Service: May 16, 2024
Chief Complaint: Accounting File Clerk Follow Up and Pulmonary Follow Up
Subjective:
Patient seen and evaluated this morning at bedside. He feels well although had difficulty urinating earlier this morning. Chest tubes removed today. He said that he had chest discomfort during the night and that is now gone since the chest tubes
have been removed. Insulin drip weaned off. He is on room air saturating 94%. Heart rate 67 and BP 107/71. He is pulling approximately 1 L from the incentive spirometer. Daughters + at bedside to all questions were answered. Patient
denies BENITO, SOB, nausea, fevers or chills. Spiked a fever yesterday in the early evening to 100.4 �F.
Review of Systems
General: Other (Negative unless mentioned above)
Objective Data
Data Reviewed
Vital Signs / I&O / Oxygen:
Vital Signs
Temp Pulse Resp BP Pulse Ox
98.1 F 64 18 126/81 94
05/16/24 07:25 05/16/24 09:30 05/16/24 09:00 05/16/24 08:27 05/16/24 09:30
Intake and Output
05/15/24 05/16/24 05/17/24
06:59 06:59 06:59
Intake Total 504.0 / 516.3 424.6 / 424.6
Output Total 1220 / 1245 365 / 365
Balance -716.0 / -728.7 59.6 / 59.6
SaO2 [CPAP] 100
SaO2 [SIMV] 100
SaO2 94
Nasal Cannula flow liters per 2
minute
Physical Exam
General: Respiratory Distress (negative), Comfortable, Chills (negative) and Sweats (negative)
HEENT: Normocephalic and Anicteric
Cardiovascular: S1-S2 and Peripheral Edema (negative)
Respiratory: Wheeze (negative), Crackles (negative), Rhonchi (negative), Non-Labored Respirations and Other (Diminished breath sounds bilaterally)
GI: Soft, Non Distended, Non Tender and Normal Bowel Sounds
Neurology: AO x 3 and Tremors (negative)
Skin: Warm, Dry and Jaundice (negative)
Labs/Micro/Reports
Lab Data
05/16/24 03:40
05/16/24 03:40
Laboratory Results
05/15/24 05/15/24
11:44 13:01
PT 16.7 H
INR 1.37
APTT 26.8
pH 7.31 L 7.35
pCO2 49 H 37
pO2 105 93
HCO3 24.7 20.4 L
O2 Delivery Level
[2024-05-16 08:29] LABS: Glucose - Point of Care 90 mg/dl (70-99)
--- NOTE | 2024-05-16 08:30 | PTCARENOTE ---
Received pt from shift leader RN at 0700; AAOx4, responds to spontaneous stimulation and follows commands; Pupils round, reactive, equal; SR w/ SB, PAC's and junctional rhythm on monitor; Epicardial V-wire in place w/ temporary pacemaker settings VVI
30/10/0.8 - no pacing noted; VSS; Lungs diminished at bases and SpO2 93-96% on 2L O2 NC; CTx1 to -20 cm wall suction draining bloody drainage - no air leak, tidaling, or crepitus noted; +2 DP and radial pulses; Generalized trace anasarca; B/L groin
puncture sites approximated and CDI, right lateral chest tube site w/ small amount of serosanguineous drainage; epicardial V-wire covered w/ gauze and tape - CDI; Pham catheter removed by shift leader RN and pt DTV; Hypoactive BS; RIJ Cordis in
place with KVO infusing; Insulin infusing see nursing flowsheets for further details; IV Lasix 40 mg ordered and given; EKG ordered and completed - amiodarone and metoprolol remain on hold; See nursing documentation for further details
[2024-05-16] MEDS: LASIX 40 MG IV (08:43)
[2024-05-16] MEDS: LIDOCAINE 4% PATCH 1 PATCH TOPICAL (08:43)
[2024-05-16] MEDS: SENOKOT-S 1 TABLET PO ×3 (08:44→21:33)
[2024-05-16] MEDS: TORADOL 15 MG IV ×3 (08:44→20:34)
[2024-05-16] MEDS: PROTONIX 40 MG PO (08:44)
[2024-05-16] MEDS: NEURONTIN 100 MG PO ×3 (08:44→21:33)
[2024-05-16] MEDS: BACTROBAN 2% OINTMENT 1 APPLIC NASAL ×2 (08:44→20:02)
[2024-05-16] MEDS: LOW STRENGTH ASPIRIN 81 MG PO (08:44)
[2024-05-16] MEDS: MAGNESIUM OXIDE 500 MG PO ×2 (08:45→20:02)
[2024-05-16] MEDS: NOVOLOG FLEXPEN 4 UNITS SC (09:32)
[2024-05-16 10:07] LABS: Glucose - Point of Care 115 mg/dl (70-99)
[2024-05-16 12:08] LABS: Glucose - Point of Care 129 mg/dl (70-99)
[2024-05-16] MEDS: NOVOLOG FLEXPEN SC (12:20)
--- NOTE | 2024-05-16 12:30 | PTCARENOTE ---
Insulin gtt discontinued; pt ambulating in hallways with RN and cardiac rehab; pt very anxious about chest tube and asking about removal due to pain - responding well to PRN IV Toradol
[2024-05-16] MEDS: FERRLECIT 110 MG IV (13:14)
[2024-05-16] MEDS: NSS IV (14:28)
--- NOTE | 2024-05-16 16:30 | PTCARENOTE ---
Right pleural chest tube removed - VSS and pt shows no signs of respiratory distress; Pt states pain is improved now that chest tube is improved; Pt ambulatory in room
--- NOTE | 2024-05-16 19:30 | PTCARENOTE ---
Received pt from [facility], walking rounds completed. Pt assessment completed in bed. Pt is AAOx3 with no neuro deficits noted. NSR with occasional PAC's on monitor, V-wire @ 30-10-2, no pacer spikes noted on monitor. B/P:117/76, HR:65, pulses
palpable, trace edema throughout. Lungs clear, diminished bi-laterally, POX: 92% RA. I/S: 500, encouraged pt to practice I/S 10x/hr while awake, pt's brought in CPAP from home, pt plans on using when asleep. Abdomen soft, round, non-tender. NBS
throughout. Pt voiding clear, yellow urine in bathroom. Right thoracotomy incision approx., surgical glue present. C/T dressing C/D/I. R Cordis KVO, both peripherals (R 22g wrist, R 20g forearm), flush, no redness or edema noted. Discussed plan of
care with pt including pain management for evening. Pt agreed with plan. Pt resting comfortably in bed.
--- NOTE | 2024-05-16 19:30 | PTCARENOTE ---
Received pt from [facility], walking rounds completed. Pt assessment completed in bed. Pt is AAOx3 with no neuro deficits noted. NSR with occasional PAC's on monitor, V-wire @ 30-10-2, no pacer spikes noted on monitor. B/P:117/76, HR:65, pulses
palpable, trace edema throughout. Lungs clear, diminished bi-laterally, POX: 92% RA. I/S: 500, encouraged pt to practice I/S 10x/hr while awake, pt's brought in CPAP from home, pt plans on using when asleep. Abdomen soft, round, non-tender. NBS
throughout. Pt voiding clear, yellow urine in bathroom. Right thoracotomy incision approx., surgical glue present. C/T dressing C/D/I. Bi-lateral groin dressing C/D/I. R Cordis KVO, both peripherals (R 22g wrist, R 20g forearm), flush, no redness or
edema noted. Discussed plan of care with pt including pain management for evening. Pt agreed with plan. Pt resting comfortably in bed.
[2024-05-16] MEDS: LIPITOR 80 MG PO (21:33)
--- NOTE | 2024-05-16 23:04 | PTCARENOTE ---
VSS, Sinus adonay on monitor. B/P:128/82, HR:57. Pain management provided per protocol (see MAR). PM medication administered. Pt resting in bed comfortably.
[2024-05-17] VITALS (10 sets, daily range): BP systolic 107–117; BP diastolic 72–80; PULSE 61–71
--- NOTE | 2024-05-17 02:53 | PTCARENOTE ---
VSS, Sinus Omer with occasional PAC's on monitor. B/P: 117/76, HR:57. Pt resting comfortably in bed. Nursing Assessment unchanged from prior.
--- NOTE | 2024-05-17 05:47 | W.PN.CT ---
Today's Communication / Plan
-
-pod #2
-no significant issues overnight
-CT output: R pleur 75/75 in 12/24 hrs, no air leak
-continue insulin
-current meds (ASA, Lipitor, Protonix). Holding BB and Amio d/t adonay
-encourage IS, OOB
Assessment / Plan
-
- Severe symptomatic MR - s/p Right mini thoracotomy with Radical mitral valve repair (34 mm band annuloplasty); LAAE with 45 mm clip on 05/15/[address] Amaya, pod #2
- intraop FREDI: LVEF 60% preop and post with no wma. There was no residual mitral valve insufficiency, no systolic anterior motion of the leaflets, no regional wall motion abnormalities. The mean gradient across the mitral valve is 1 mmHg.
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
- Severe mitral valve insufficiency, symptomatic
- Dilated left atrium and annulus
- History of coronary artery disease with multiple stents in the past, previous HI
- Sleep apnea on CPAP
- Nephrolithiasis
- History of GI bleed
- Hypertension
- Hyperlipidemia
- Non-insulin diabetes mellitus (A1c 5.2)
- Acute postop blood loss anemia - stable, no transfusion
- Acute postop atelectasis
- Acute postop hypovolemia with subsequent hypervolemia
Subjective
Procedure
- s/p Right mini thoracotomy with Radical mitral valve repair (34 mm band annuloplasty); LAAE with 45 mm clip on 05/15/[address] Amaya
-
Date of Service: May 17, 2024
Objective Data
-
PT 16.7 Sec (11.4-14.6) H 05/15/24 11:44
INR 1.37 05/15/24 11:44
APTT 26.8 Sec (23.4-35.0) 05/15/24 11:44
Vital Signs
Vital Signs
Temp Pulse Resp BP Pulse Ox
98.8 F 62 16 117/76 92
05/17/24 02:59 05/17/24 02:59 05/17/24 02:59 05/17/24 02:56 05/17/24 02:59
CT Intake/Output/Weight
05/16/24 05/16/24 05/17/24
06:59 18:59 06:59
Intake Total 203.2 / 516.3 1314.8 / 1554.8 240 / 1554.8
Output Total 605 / 1245 875 / 875
Balance -401.8 / -728.7 439.8 / 679.8 240 / 679.8
SaO2: 92
Physical Exam
-
General: Awake, Oriented and AOx3
Cardiovascular: Regular rate & rhythm
Respiratory: Clear
Sternum: Stable
Extremities: No Edema
Data Reviewed
-
Lab Results: Results Reviewed
Medications: Active Meds Reviewed
Chest X-Ray: Report Reviewed
ECG: Report Reviewed
[2024-05-17] MEDS: TYLENOL 1000 MG PO ×3 (05:56→21:07)
[2024-05-17 06:05] LABS: Hematocrit 34.6 % (39.0-52.0); Hemoglobin 11.8 g/dL (13.0-18.0); Mean Corp Hgb Conc. 34.1 g/dL (33.0-37.0); Mean Corpuscular Hgb 28.9 pg (27.0-31.0); Mean Corpuscular Volume 84.6 fL (80.0-94.0); Mean Platelet Volume 10.4 fL (7.4-10.4); Platelet Count 126 10^3/uL (130-400); Red Blood Cell Count 4.09 10^6/uL (4.70-6.10); Red Cell Dist. Width 14.9 % (11.5-14.5); White Blood Cell Count 11.4 10^3/uL (4.8-10.8)
[2024-05-17 06:31] LABS: Blood Urea Nitrogen 29 mg/dl (9-20); Calcium 8.7 mg/dl (8.4-10.2); Carbon Dioxide 26 mmol/L (22-30); Chloride 103 mmol/L (98-107); Estimated Creatinine Clearance 83 ml/min; Glucose 98 mg/dl (70-99); Magnesium 2.3 mg/dl (1.6-2.3); Potassium 4.1 mmol/L (3.5-5.1); Sodium 139 mmol/L (135-145); eGFR > 60.00
[2024-05-17] MEDS: LASIX 40 MG IV (08:35)
[2024-05-17] MEDS: SENOKOT-S 1 TABLET PO ×3 (08:36→21:07)
[2024-05-17] MEDS: LOW STRENGTH ASPIRIN 81 MG PO (08:36)
[2024-05-17] MEDS: KCL 20 MEQ PO (08:36)
[2024-05-17] MEDS: PROTONIX 40 MG PO (08:36)
[2024-05-17] MEDS: LIDOCAINE 4% PATCH 1 PATCH TOPICAL (08:37)
[2024-05-17] MEDS: NEURONTIN 100 MG PO ×3 (08:37→21:07)
[2024-05-17] MEDS: MAGNESIUM OXIDE 500 MG PO ×2 (08:37→21:06)
[2024-05-17] MEDS: BACTROBAN 2% OINTMENT 1 APPLIC NASAL ×2 (08:38→21:06)
[2024-05-17 08:46] LABS: Glucose - Point of Care 104 mg/dl (70-99)
[2024-05-17] MEDS: TORADOL 15 MG IV (08:52)
--- NOTE | 2024-05-17 09:31 | PTCARENOTE ---
Received patient for 7a-7p shift. Pt AAOx3, without complaints. VSS, NSR on cardiac exercise specialist. Medications administered as ordered. Patient c/o 5/10 incisional pain, toradol given as ordered. IS up to 500, encouraged. Blood glucose 104. Pt tolerating
po intake. Fall precautions maintained, call sorenson in reach, will continue to monitor.
[2024-05-17 12:31] LABS: Glucose - Point of Care 175 mg/dl (70-99)
[2024-05-17] MEDS: FERRLECIT 110 MG IV (14:40)
[2024-05-17] MEDS: NSS IV (14:41)
[2024-05-17 17:30] LABS: Glucose - Point of Care 113 mg/dl (70-99)
--- NOTE | 2024-05-17 18:00 | PTCARENOTE ---
Patient's assessment unchanged from previous. VSS, NSR on manager monitoring. Pt ambulatory in room and hallway with family without issues. Medications administered as ordered. R chest tube site dressing changed. V wire to backup pacer, no pacing
noted. Patient denies pain at this time. Will continue to monitor.
--- NOTE | 2024-05-17 21:00 | PTCARENOTE ---
Patient received OOB in chair watching television. Patient ambulating in room and to bathroom by self. Steady gait. Patient A+A+Ox3. No neurological deficits noted. No c/o SOB. No GEORGE noted. Room air. SaO2 93%. Home CPAP HS. Chest tube
dressing intact. Sinus Bradycardia to Sinus Rhythm. Heart rate 50-60's. Blood pressure 117/78 (89). Epicardial Temporary Pacemaker - VVI Rate 30, Output 10, Sensitivity 2.0. Patient with no c/o chest pain, pressure or discomfort. Bowel and
bladder within normal limits. Positive, palpable pulses. Right I.J. Cordis. Right lateral chest incision - Surgical adhesive. Right lateral puncture sites - Open to air. Right groin dressing intact. Left groin dressing intact. Patient with no
c/o back or flank pain. Assessment as documented.
[2024-05-17] MEDS: LIPITOR 80 MG PO (21:07)
--- NOTE | 2024-05-18 | PTCARENOTE ---
Patient sleeping without difficulty. Wearing Home CPAP HS. SaO2 91%. No further changes from previous assessment.
[2024-05-18 03:29] VITALS: BP 111/76
[2024-05-18 03:30] VITALS: BP 111/76
[2024-05-18 03:56] LABS: Hematocrit 32.4 % (39.0-52.0); Hemoglobin 10.8 g/dL (13.0-18.0); Mean Corp Hgb Conc. 33.3 g/dL (33.0-37.0); Mean Corpuscular Hgb 28.3 pg (27.0-31.0); Mean Platelet Volume 9.8 fL (7.4-10.4); Platelet Count 114 10^3/uL (130-400); Red Blood Cell Count 3.81 10^6/uL (4.70-6.10); Red Cell Dist. Width 14.9 % (11.5-14.5)
--- NOTE | 2024-05-18 04:00 | PTCARENOTE ---
Patient A+A+Ox3. No neurological deficits noted. AM lab work collected and sent. Patient ambulated in hallway. OOB in chair watching television. Patient with no c/o pain or discomfort. Assessment/Interventions as documented.
[2024-05-18 04:28] LABS: Blood Urea Nitrogen 23 mg/dl (9-20); Calcium 8.4 mg/dl (8.4-10.2); Carbon Dioxide 27 mmol/L (22-30); Chloride 104 mmol/L (98-107); Estimated Creatinine Clearance 101 ml/min; Glucose 89 mg/dl (70-99); Magnesium 2.1 mg/dl (1.6-2.3); Potassium 3.8 mmol/L (3.5-5.1); Sodium 141 mmol/L (135-145); eGFR > 60.00
[2024-05-18] MEDS: TYLENOL 1000 MG PO (04:43)
--- NOTE | 2024-05-18 05:07 | W.PN.CT ---
Today's Communication / Plan
-
-pod #3
-no overnight events
-diuresed yesterday 40 mg IV lasix, groin stitch removed
-Remains in sinus adonay in 50s, upper 40s while sleeping. BB/amio still on hold.
-R Pl CT removed 05/16
-follow platelets 126->114 today
-continue insulin
-current meds (ASA, Lipitor, Protonix).
-encourage IS, OOB
Assessment / Plan
-
- Severe symptomatic MR - s/p Right mini thoracotomy with Radical mitral valve repair (34 mm band annuloplasty); LAAE with 45 mm clip on 05/15/[address] Amaya, pod #3
- intraop FREDI: LVEF 60% preop and post with no wma. There was no residual mitral valve insufficiency, no systolic anterior motion of the leaflets, no regional wall motion abnormalities. The mean gradient across the mitral valve is 1 mmHg.
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
- Severe mitral valve insufficiency, symptomatic
- Dilated left atrium and annulus
- History of coronary artery disease with multiple stents in the past, previous MA
- Sleep apnea on CPAP
- Nephrolithiasis
- History of GI bleed
- Hypertension
- Hyperlipidemia
- Non-insulin diabetes mellitus (A1c 5.2)
- Acute postop blood loss anemia - stable, no transfusion
- Acute postop atelectasis
- Acute postop hypovolemia with subsequent hypervolemia
Subjective
Procedure
- s/p Right mini thoracotomy with Radical mitral valve repair (34 mm band annuloplasty); LAAE with 45 mm clip on 05/15/[address] Amaya
-
Date of Service: May 18, 2024
Objective Data
-
Lab Results
05/18/24 03:36
05/18/24 03:36
PT 16.7 Sec (11.4-14.6) H 05/15/24 11:44
INR 1.37 05/15/24 11:44
APTT 26.8 Sec (23.4-35.0) 05/15/24 11:44
Vital Signs
Vital Signs
Temp Pulse Resp BP Pulse Ox
98.2 F 73 16 111/76 95
05/18/24 03:30 05/18/24 03:45 05/18/24 03:30 05/18/24 03:30 05/18/24 03:30
CT Intake/Output/Weight
05/17/24 05/17/24 05/18/24
06:59 18:59 06:59
Intake Total 520 / 1834.8 500 / 1040 540 / 1040
Output Total 500 / 1375 1450 / 2000 550 / 2000
Balance 20 / 459.8 -950 / -960 -10 / -960
SaO2: 95
Physical Exam
-
General: Awake, Oriented and AOx3
Cardiovascular: Regular rate & rhythm and No Murmurs
Respiratory: Clear and Equal
Sternum: Stable
Incision: Clean, Dry and Dressing Intact
Extremities: No Edema
Data Reviewed
-
Lab Results: Results Reviewed
Medications: Active Meds Reviewed
Chest X-Ray: Report Reviewed
ECG: Report Reviewed
[2024-05-18 08:27] VITALS: BP 118/82
[2024-05-18] MEDS: TORADOL 15 MG IV (08:34)
[2024-05-18] MEDS: LASIX 40 MG IV (08:34)
[2024-05-18] MEDS: PROTONIX 40 MG PO (08:35)
[2024-05-18] MEDS: KCL 40 MEQ PO (08:35)
[2024-05-18] MEDS: NEURONTIN 100 MG PO (08:35)
[2024-05-18] MEDS: LIDOCAINE 4% PATCH 1 PATCH TOPICAL (08:35)
[2024-05-18] MEDS: MAGNESIUM OXIDE 500 MG PO (08:35)
[2024-05-18] MEDS: BACTROBAN 2% OINTMENT 1 APPLIC NASAL (08:36)
[2024-05-18] MEDS: SENOKOT-S 1 TABLET PO (08:36)
[2024-05-18] MEDS: LOW STRENGTH ASPIRIN 81 MG PO (08:36)
--- NOTE | 2024-05-18 08:45 | PTCARENOTE ---
Received pt from car shifter RN; AAOx4, responds to spontaneous stimulation and follows commands; Pupils round, reactive, equal; SB w/ SR and prolonged QT on monitor; Epicardial V-wire in place w/ temporary pacemaker settings VVI 30/10/2.0 - no
pacing noted; VSS; Lungs diminished at bases, IS 1500, SpO2 95-97% on on RA; +2 DP and radial pulses; Trace edema in B/L LE; B/L groin puncture sites approximated and CDI, right lateral chest incision approximated and CDI; Right lateral puncture
site from previous chest tube CDI; Pt urinating clear, yellow urine; Hypoactive BS; RIJ Cordis in place with KVO infusing; Insulin infusing see nursing flowsheets for further details; IV Lasix 40 mg ordered and given; Amiodarone and metoprolol
remain on hold due to low HR at times; PRN IV Toradol given for pain; See nursing documentation for further details
--- NOTE | 2024-05-18 10:00 | W.DCSUMMARY ---
Discharge Summary
Discharge Data
Date of Admission: 05/15/24
Date of Discharge: 05/18/24
-
Pending Results: No
Hospital Course
Primary care physician: Reid Ordaz
Outpatient executive officer: Jose Angel Ferraro
Inpatient consultants: SHOSHANA
Procedures:
1. 05/15/24 heartport mitral valve repair with #34mm annuloplasty band, triangular resection of P1/P2 and goretex neochord to P1/P2 segment with exclusion of left atrial appendage with #45mm clip by Dr. Anton Amaya
Primary Diagnosis:
1. 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
Secondary Diagnoses:
1. coronary artery disease status post stents to LAD, LCx & RCA (all patent on Left heart catheterization 04/26/24)
2. hypertension
3. hyperlipidemia
4. type 2 diabetes mellitus, with A1C down to 5.2 as of 04/23/24
5. obstructive sleep apnea
6. history of gastrointestinal bleed
7. history of nephrolithiasis
8. acute postop blood loss anemia, stable (discharge hgb 10.8)
HPI: Pt is a 58y/oM with PMH CAD s/p multiple stents to LAD, LCx & RCA in the past who presented to outpatient cardiology with known mitral regurgitation that has been followed for some time. Most recent echo demonstrated moderate MR with eccentric
jet prompting outpatient FREDI. FREDI demonstrated severe MR with flail of Posterior leaflet & pt was therefore referred to CT surgery for evaluation. After all preoperative workup was completed he was deemed a suitable candidate to undergo mini mitral
repair.
Hospital course: Pt was admitted on 05/15/24 and underwent an uncomplicated radical mitral valve repair via right mini thoracotomy by Dr Amaya. He was transferred to CVICU per protocol and was extubated that afternoon at 13:15. He was put on CPAP
overnight for his preexisting BARRETT. on postop day #1 he remained sinus adonay with intermittent periods of junctional rhythm. Amiodarone & beta elizabeth were held. Chest tube discontinued without incident, Aspirin continued. He ambulated with cardiac
rehab. On postop day 2 BB remains on hold. Iv lasix given for postop volume overload, R groin cannulation site stitch removed. He continues to improve with pain control and ambulation. On postop day #3 he remains sinus adonay with stable blood
pressure. He is ambulatory, did steps with cardiac rehab. Follow up echo on 05/18 demonstrates no MR, EF 55%. He was discharged to home in good condition. He will have follow up with the transitional care nurses from .
Home medication changes: New Rx lasix/kcl x 5 days for postop volume overload. Pt instructed to stop metoprolol for bradycardia at this time and hold amlodipine at this time for relative hypotension. Amlodipine to be resumed at physician discretion
when BP improves. new Rx for gabapentin x10 days for postop pain. Pt instructed to take tylenol/ibuprofen/lidocaine patch prn for post surgical pain.
Discharge Plan
-
Patient Disposition: Home (Routine Discharge)
Discharge Diagnosis/Procedures: mitral regurgitation, s/p heartport mitral valve repair
Condition: Good
Diet: As tolerated and Low Sodium
Activity: No strenuous activity
Driving Restrictions: No driving for 2 weeks
Bathing Restrictions: OK to Shower
Other Services: Cardiac Rehab
Specialty Instructions: Weigh Daily- Call MD for wt gain/loss 3 lbs overnight/5 lbs in 1 week
Referrals:
CT Transitional Care Nurse [Outside]
(
The Cardiothoracic Transitional Care Nurse will call you to set up a visit in 1-2 days.)
[facility]. Cardiac Rehab [Outside] - 06/23/24 11:00 am
(Cardiac Rehab Orientation appointment is on Sunday June 23, 2024 @11:00am.
The Cardiac Rehab gym is located on the first floor of the [facility].)
Gregory Nunez MD [Active] - (Sleep clinic for sleep follow up)
Reid Ordaz MD [Family Provider] - in four to six weeks (Please make an appointment in four to six weeks. )
Lesley Frank CRNP [Specified Professional Personl] - 06/26/24 10:00 am
Anton Amaya MD [Active] - 06/17/24 1:15 pm
Prescriptions:
New
acetaminophen 325 mg Tablet
650 mg PO Q6HPRN PRN (Reason: mild pain,headache,temp >101F ) Qty: 0 0RF
sennosides-docusate sodium 8.6-50 mg Tablet
1 tab PO BID PRNQty: 0 0RF
lidocaine 4 % Adhesive Patch,Medicated
1 patch topical DAILY PRNQty: 0 0RF
gabapentin 100 mg Capsule
100 mg PO TID Qty: 30 0RF
ibuprofen 200 mg tablet
600 mg PO Q6H PRN (Reason: Pain) Qty: 60 0RF
potassium chloride [Klor-Con M20] 20 mEq tablet,ER particles/crystals
20 meq PO DAILY Qty: 5 0RF
furosemide [Lasix] 40 mg tablet
40 mg PO DAILY Qty: 5 0RF
Continued
nitroglycerin 0.4 MG tablet, sublingual
0.4 mg sublingual [id number] PRN (Reason: chest pain or SBP > 150 mmHg) Qty: 25 3RF
atorvastatin 80 mg Tablet
80 mg PO HS
metformin 1,000 mg Tablet
1,000 mg PO QPM
Mounjaro 2.5 mg/0.5 mL Pen Injector
2.5 mg SC MO
aspirin 81 MG tablet,chewable
81 mg PO HS
CoQ-10 300 MG
PO DAILY
multivitamin
fiber
Discontinued
metoprolol tartrate 25 MG tablet
25 mg PO HS
amlodipine 10 mg Tablet
10 mg PO HS
Discharge Orders:
Discharge Patient (As Directed); Ordered 05/18/24
Ordered By: Gilma Walden
Care Plan Goals
Care Plan Goals:
Problem: Readiness for enhanced knowledge related to diagnosis and treatment plan
Goal: Understand your diagnosis and treatment plan needs, including medications if applicable.
Instructions: Know your diagnosis, underlying causes and treatment plan options, including medications if applicable. Consult with your health care team to learn about your diagnosis and treatment plan, including medications if applicable.
Discharge Date and Time
Print Language: NEPALI
[2024-05-18] MEDS: NSS IV (10:40)
--- NOTE | 2024-05-18 10:45 | W.PN.CD ---
Today's Communication / Plan
-
Good for home
Excellent result
He is motivated for continued prevention
Impression / Plan
-
Impression/Plan: 58 y/o male with HTN, HLD, CAD s/p prior PCI and MVP with severe MR admitted for elective MVR.
S/p MV repair 05/15/2024
- No complications
- EKG/FREDI, intraop/today's TTE all very good
CAD, complete revascularization, patent at recent cath pre MV surgery
HLD, well controlled, continue statin
DM, type II, excellent control
BMI, dramatic improvement, continue GLP1,2 agnonist
Subjective/Interval History:
Doing well. No complaints
Physical Exam
Vital Signs/Labs
Vital Signs
Temp Pulse Resp BP Pulse Ox
98.0 F 58 16 118/82 95
05/18/24 08:00 05/18/24 08:26 05/18/24 08:00 05/18/24 08:27 05/18/24 08:40
05/17/24 05/18/24 05/19/24
06:59 06:59 06:59
Actual Weight 103.1 kg 103.1 kg
05/18/24 03:36
05/18/24 03:36
PT 16.7 Sec (11.4-14.6) H 05/15/24 11:44
INR 1.37 05/15/24 11:44
APTT 26.8 Sec (23.4-35.0) 05/15/24 11:44
Magnesium 2.1 mg/dl (1.6-2.3) 05/18/24 03:36
Physical Exam
Constitutional: No acute distress
EENT: Anicteric
Cardiovascular: Rhythm & rate is regular, Pedal edema is absent and Murmur/rub/gallop absent
Respiratory: Respiratory effort normal and Lungs clear to auscul.
GI: Soft and Distention absent
Neuro/Psych: AO x 3 and Motor deficits absent
Data Reviewed
-
Date of Service: May 18, 2024
--- NOTE | 2024-05-18 10:49 | PTCARENOTE ---
Epicardial pacing wire cut at bedside by LO Morales and BIBI Cordis removed by RN - VSS throughout, no signs of bleeding or respiratory distress noted; Pt now working with Cardiac Rehab.
[2024-05-18 10:56] VITALS: BP 127/82
[2024-05-18 11:05] VITALS: BP 139/89
[2024-05-18 11:10] VITALS: BP 127/82; BP 139/89; PULSE 55; O2SAT 96; O2SAT 99
--- NOTE | 2024-05-18 11:39 | W.PN.UPDATE ---
Update Note
Progress Note Update
Temporary V wire cleaned with chloraprep, skin pressure applied by RN. I retracted V wire and cut at the skin. Pt tolerated well.
--- NOTE | 2024-05-18 11:49 | CM ---
Reviewed chart. Met with Mr. Miranda to review discharge plans. He states he is felling well and maybe able to go home soon. We reviewed a home visit by the Cardiothoracic Transitional Care Nurse. He is agreeable to a home visit. Prior to
admission he resides with his spouse in a two story home with one step to enter. Prior to admission he was independent with ambulation and adls. He ambulated 450 feet and did the stairs. Medical work-up in progress. The discharge plan is to
return home with his spouse and a home visit by the Cardiothoracic Transitional Care Nurse when medically stable.
--- NOTE | 2024-05-18 13:30 | PTCARENOTE ---
Discharge order for pt received. 2 view x-ray completed. PIV's removed. Pt showered. Pt with no changes in assessment. Reviewed discharge instructions with pt and pt's , questions addressed. Stable at discharge.
== END 2024-05-18 13:49 | disposition home or self-care (01) | DRG 219 ==
LOC: CVICU 05:21
PROVIDERS: Anesthesiology; Nurse Practitioner; Physician Assistant Surgical; ADMITTING PHYSICIAN Thoracic Surgery (Cardiothoracic Vascular Surgery); CONSULT PHYSICIAN Internal Medicine Cardiovascular Disease; CONSULT PHYSICIAN Internal Medicine Critical Care Medicine; FAMILY PHYSICIAN Family Medicine
PROC: 02L70CK Occlusion of Left Atrial Appendage with Extraluminal Device, Open Approach (ICD-10-PCS; 2024-05-15)
PROC: 02UG0JZ Supplement Mitral Valve with Synthetic Substitute, Open Approach (ICD-10-PCS; 2024-05-15)
PROC: 02U90JZ Supplement Chordae Tendineae with Synthetic Substitute, Open Approach (ICD-10-PCS; 2024-05-15)
PROC: 5A1221Z Performance of Cardiac Output, Continuous (ICD-10-PCS; 2024-05-15)
PROC: B24BZZ4 Ultrasonography of Heart with Aorta, Transesophageal (ICD-10-PCS; 2024-05-15)
DX: I34.0 Nonrheumatic mitral (valve) insufficiency (principal); I51.1 Rupture of chordae tendineae, not elsewhere classified; D62 Acute posthemorrhagic anemia; J98.11 Atelectasis; R00.1 Bradycardia, unspecified; E87.70 Fluid overload, unspecified; I95.9 Hypotension, unspecified; E86.1 Hypovolemia; I25.10 Atherosclerotic heart disease of native coronary artery without angina pectoris; I10 Essential (primary) hypertension; E78.5 Hyperlipidemia, unspecified; E11.9 Type 2 diabetes mellitus without complications; G47.33 Obstructive sleep apnea (adult) (pediatric); I34.1 Nonrheumatic mitral (valve) prolapse; I25.2 Old myocardial infarction; Z95.5 Presence of coronary angioplasty implant and graft; Z87.442 Personal history of urinary calculi; Z87.19 Personal history of other diseases of the digestive system
CPT/HCPCS: 88305; 93308; 36415; 71045; 71046; 80048; 80053; 81003; 81015; 82248; 82330; 82565; 82805; 82810; 82947; 82962; 83036; 83735; 84132; 84302; 84520; 85014; 85018; 85025; 85027; 85049; 85610; 85730; 86850; 86900; 86901; 86920; 87070; 93005; 93312; 93320; 93321; 93325; 93880; 94002; J2916; P9045

== ENCOUNTER 2024-05-30 16:36 | Emergency (ER) | payer OTHER, SELFPAY ==
[2024-05-30 17:58] LABS: % Basophils 1.1 % (0-2); % Eosinophils 4.7 % (0-6); % Immature Granulocytes 0.1 % (0-0.5); % Lymphocytes 18.7 % (20.5-51.1); % Monocytes 8.5 % (1.7-9.3); % Neutrophils 66.9 % (42.2-75.2); Absolute Basophils 0.1 10^3/uL (0-0.2); Absolute Eosinophils 0.3 10^3/uL (0-0.7); Absolute Lymphocytes 1.4 10^3/uL (1.2-3.4); Absolute Monocytes 0.6 10^3/uL (0.1-0.6); Absolute Neutrophils 4.9 10^3/uL (1.4-6.5); Hematocrit 37.6 % (39.0-52.0); Hemoglobin 12.8 g/dL (13.0-18.0); Mean Corpuscular Hgb 28.4 pg (27.0-31.0); Mean Corpuscular Volume 83.4 fL (80.0-94.0); Mean Platelet Volume 8.5 fL (7.4-10.4); Nucleated Red Blood Cells % 0 % (-); Platelet Count 213 10^3/uL (130-400); Red Blood Cell Count 4.51 10^6/uL (4.70-6.10); Red Cell Dist. Width 14.6 % (11.5-14.5); White Blood Cell Count 7.3 10^3/uL (4.8-10.8)
[2024-05-30 18:00] VITALS: BP 119/77
[2024-05-30 18:11] LABS: ALT (SGPT) 21 U/L (0-50); AST (SGOT) 21 U/L (17-59); Albumin 3.8 g/dl (3.5-5.0); Alkaline Phosphatase 61 U/L (38-126); Blood Urea Nitrogen 22 mg/dl (9-20); Calcium 9.3 mg/dl (8.4-10.2); Carbon Dioxide 28 mmol/L (22-30); Chloride 108 mmol/L (98-107); Glucose 106 mg/dl (70-99); Potassium 3.7 mmol/L (3.5-5.1); Sodium 145 mmol/L (135-145); Total Bilirubin 0.3 mg/dl (0.2-1.3); Total Protein 6.2 g/dl (6.3-8.2); eGFR > 60.00
[2024-05-30 18:27] LABS: Troponin I 0.038 ng/ml
[2024-05-30 19:00] VITALS: BP 121/87
[2024-05-30 19:57] VITALS: BMI 32.5
--- NOTE | 2024-05-30 20:14 | CONSULT.CT ---
Consultation
-
Date/Time Consultation Requested: 05/30/24
Date/Time Consultation Performed: 05/30/24
Requesting Provider: Samir Paz PA-C
Performing Provider: Jake BATISTA
Reason for Consultation: post op atrial fibrillation
Patient History
Physicians
Family Physician: Reid Ordaz
Outpatient Customer Care Agent: Jose Angel Ferraro
History of Present Illness
58-year-old male with a history of CAD multiple stents to LAD, LCx, RCA with known mitral regurgitation that had been found to worsen related to a flail posterior leaflet and on 05/15/2024 underwent uncomplicated radical mitral valve repair via right
minithoracotomy (#34 mm annuloplasty band, triangular resection of P1/P1 and [place] neochord to P1/P2 segment with KIRSTIN #45 clip) by Dr. Amaya. Postoperatively he was noted to have sinus bradycardia to junctional rhythms and was not discharged on
beta-blockade. Since discharge he reports that his heart rate has been increasing. He has a Fitbit which tells him he has been intermittently going into atrial fibrillation. He went into atrial fibrillation with rapid ventricular response today
and presented to the emergency department for further evaluation. On arrival found to be in atrial fibrillation with rapid ventricular response however during the course of his emergency department visit he converted back to sinus rhythm in the
70s. At the time of my assessment he is with his and appears well. Currently denying any chest pain or shortness of breath.
Past Medical History
Past Medical History: Atrial Fib, CAD, HTN, Hypercholesterolemia, NIDDM and BARRETT
Past Surgical History
05/15/24 heart port mitral valve repair with number 34 mm annuloplasty band, triangular resection of P1/P2 and [place] neocord to P1/P2 segment with exclusion of left atrial appendage with number [address] Amaya
Allergies
Allergy/AdvReac Type Severity Reaction Status Date / Time
No Known Allergies Allergy Verified 05/30/24 16:47
Home Medications
�Medication �Instructions �Recorded �Confirmed �Type
nitroglycerin 0.4 mg sublingual 0.4 mg sublingual [id number] PRN 10/11/16 04/24/24 Rx
tablet chest pain or SBP > 150 mmHg #25 mg
atorvastatin 80 mg tablet 80 mg PO HS CHOLESTEROL 04/06/24 05/15/24 History
metformin 1,000 mg tablet 1,000 mg PO QPM DM 04/06/24 05/15/24 History
tirzepatide 2.5 mg/0.5 mL 2.5 mg SC MO WEIGHT LOSS, DM 04/06/24 05/15/24 History
subcutaneous pen injector
(Mounepifanioro)
aspirin 81 mg chewable tablet 81 mg PO HS BLOOD THINNER 04/21/24 05/15/24 History
CoQ-10 caplet PO DAILY Supplement 05/15/24 History
fiber Constipation 05/15/24 History
multivitamin Supplement 05/15/24 History
acetaminophen 325 mg tablet 650 mg (2 x 325 mg) PO Q6HPRN PRN 05/18/24 Rx
mild pain,headache,temp >101F #0
tabs
furosemide 40 mg tablet (Lasix) 40 mg PO DAILY #5 tabs 05/18/24 Rx
gabapentin 100 mg capsule 100 mg PO TID #30 caps 05/18/24 Rx
ibuprofen 200 mg tablet 600 mg (3 x 200 mg) PO Q6H PRN 05/18/24 Rx
Pain #60 tabs
lidocaine 4 % topical patch 1 patch topical DAILY PRN #0 ea 05/18/24 Rx
potassium chloride 20 mEq 20 meq PO DAILY #5 tabs 05/18/24 Rx
tablet,extended
release(part/cryst) (Klor-Con M)
sennosides 8.6 mg-docusate sodium 1 tab PO BID PRN #0 tabs 05/18/24 Rx
50 mg tablet
Review of Systems
-
History Source: Patient
General: Reports Weight Loss and Night Sweats
HEENT: Reports No Symptoms
Respiratory: Reports SOB
Cardiac: Reports Chest Pain and Palpitations
Abdomen/GI: Reports No Symptoms
Neurological: Reports No Symptoms
Vascular: Reports No Symptoms
Physical Exam
Vital Signs
Pulse 81 05/30/24 19:15
Resp Rate 21 05/30/24 19:15
Blood pressure 121/87 05/30/24 19:00
MAP (cuff-Eyal Monitor) 99 05/30/24 19:00
SaO2 96 05/30/24 18:00
Oxygen Mode of Delivery Room air 05/30/24 18:00
Actual Weight 105.6 kg 05/30/24 19:57
Body Mass Index (BMI) 32.5 05/30/24 19:57
Labs
05/30/24 17:45
05/30/24 17:45
Troponin I 0.038 ng/ml H* 05/30/24 17:45
Exam
General: Well Developed, Well Nourished, No Apparent Distress and Comfortable
HEENT: Normocephalic, Anicteric and Moist Mucous Membranes
Neck: Other (No JVD)
Respiratory: Clear
Cardiac: S1/S2 and Regular Rhythm
GI: Soft
Skin: Warm and Dry
Neuro: Awake, Alert, AO x 3 and No Motor Deficits
Psych: Calm
Assessment / Plan
-
58-year-old male with a history of CAD multiple stents to LAD, LCx, RCA with known mitral regurgitation that had been found to worsen related to a flail posterior leaflet and on 05/15/2024 underwent uncomplicated radical mitral valve repair via right
minithoracotomy (#34 mm annuloplasty band, triangular resection of P1/P1 and [place] neochord to P1/P2 segment with KIRSTIN #45 clip) by Dr. Amaya now presenting with paroxysmal atrial fibrillation with rapid ventricular response.
Recommendations:
Pending echocardiogram to evaluate for effusion although clinically it does not appear that he would have one
Can consider discharging on 12.5 mg metoprolol and Eliquis if echo is normal
Has follow-up appointment with Dr. Amaya
Assessment and plan reviewed and discussed with attending cardiothoracic surgeon Dr. Looney.
[2024-05-30 20:19] VITALS: BP 121/82
[2024-05-30 21:00] VITALS: BP 114/83
--- NOTE | 2024-05-30 21:20 | ED.GENMED ---
History of Present Illness
General
Chief Complaint: Heart Rate Problem
Source: patient and spouse
Exam Limitations: none
Time Seen by Provider: 05/30/24 18:20
Nursing documentation reviewed up to this point in time: agreed with
History of Present Illness
History of Present Illness:
58-year-old male past medical history of CAD hypertension hyperlipidemia recent mitral valve repair 2 weeks ago presented to the emergency department today with concerns of palpitations intermittently over the past few days but specifically today
also some shortness of breath and intermittent chest pain. Currently symptoms are resolved. No history of A-fib in the past. Recently was taken off of metoprolol and amlodipine.
Past History
Past History
ED Past Medical History: CAD, Valvular disease and Other
ED Past Surgical History: Cardiac and Other
Social History
Tobacco: Non-smoker
Alcohol: Occasional
Drug: None
Personal:
Living: with family
Employment: Employed
Review of Systems
Review of Systems
Allergies reviewed?: Yes
All Other Systems: ROS reviewed and negative except as documented in HPI and ROS
Phy Exam
Physical Exam
Physical Exam:
GENERAL: Alert , in no apparent distress
EYE: pupils equal and reactive
NECK: Supple, no significant adenopathy.
ENT: o/p clr, mmm.
CARDIAC: Regular rate and rhythm .
LUNGS: Clear breath sounds bilaterally, no acute respiratory distress, no wheezes/rales/rhonchi
ABDOMEN: Soft, without focal tenderness, no r/g, no cvat
NEUROLOGICAL: Alert and oriented, no focal neuro deficits
SKIN: Warm and dry, skin intact.
MUSCULOSKELETAL: No edema, well perfused.
PSYCH: Normal and appropriate interaction.
Course
Orders/Labs/Results
Orders:
Orders
05/30/24 16:37
Electrocardiogram (*1) Urgent
Reason for Study: Chest Pain
EKG- Treatment ONCE
05/30/24 17:45
Complete Blood Count/With Diff Routine
Comprehensive Metabolic Panel Urgent
Troponin I Urgent
05/30/24 18:51
Chest [CR Chest - 2 Views ] Urgent
Comment:
Reason For Exam: cp sob
05/30/24 18:57
Echo 2D MMode Color/Doppler Urgent
Reason for Study: MV repair 2 weeks ago, CP/SOB
05/30/24 21:10
Apixaban [Eliquis] 5 mg PO ONCE ONE
05/30/24 21:51
Metoprolol [Lopressor] 12.5 mg PO NOW STA
Abnormal Lab Results
05/30/24
17:45
RBC 4.51 L 10^6/uL
(4.70-6.10)
Hgb 12.8 L g/dL
(13.0-18.0)
Hct 37.6 L %
(39.0-52.0)
RDW 14.6 H %
(11.5-14.5)
Lymphocytes % 18.7 L %
(20.5-51.1)
Chloride 108 H mmol/L
(98-107)
BUN 22 H mg/dl
(9-20)
Glucose 106 H mg/dl
(70-99)
Troponin I 0.038 H* ng/ml
Total Protein 6.2 L g/dl
(6.3-8.2)
05/30/24 17:45
05/30/24 17:45
Vital Signs
Initial and Last Documented VS:
Initial Vital Signs
Pulse Resp BP Pulse Ox
81 18 119/77 96
05/30/24 18:00 05/30/24 18:00 05/30/24 18:00 05/30/24 18:00
Last Documented Vital Signs
Pulse Resp BP Pulse Ox
78 18 117/83 96
05/30/24 22:12 05/30/24 21:30 05/30/24 22:12 05/30/24 18:00
MDM/Problems Addressed
MDM/Problems Addressed:
58-year-old male presenting to the emergency department today with concerns of intermittent palpitations since he received a mitral valve repair 12 days ago. Upon arrival vital signs are normal he denies specific symptoms during my exam but did
have an EKG showing A-fib upon arrival. Mildly elevated troponin level. Case was discussed with CT surgery as well as cardiology recommending acute echo to rule out complications. Echo was performed without emergent findings. They were advising
anticoagulation as well as metoprolol concerning the patient's new onset A-fib otherwise stable for outpatient management return precautions given. Patient was seen at bedside by CT surgery team as well as cardiology team.
*Critical Care Note
Total Time (30-74mins, 75-104mins- exclusive of procedures): Not Applicable
ED Attending Note
-
Portions of this chart may have been created with voice recognition software.� Occasional wrong word or��sound alike� substitutions may have occurred due to the inherent limitations of voice recognition software.
Discharge Plan
Departure
Patient Disposition: Home (Routine Discharge)
Date of Disposition: 05/30/24
Time of Disposition: 22:19
Patient with high blood pressure during this ER visit?: No
Condition: Good
Covid-19: Not Applicable
Discharge Problem:
Atrial fibrillation
Instructions: Atrial Fibrillation (DC)
Prescriptions:
New
Eliquis 5 mg tablet
5 mg PO BID 14 Days Qty: 28 0RF
metoprolol tartrate 25 mg tablet
12.5 mg PO BID 14 Days Qty: 14 0RF
No Action
nitroglycerin 0.4 MG tablet, sublingual
0.4 mg sublingual [id number] PRN (Reason: chest pain or SBP > 150 mmHg) Qty: 25 3RF
atorvastatin 80 mg Tablet
80 mg PO HS
metformin 1,000 mg Tablet
1,000 mg PO QPM
Mounjaro 2.5 mg/0.5 mL Pen Injector
2.5 mg SC MO
aspirin 81 MG tablet,chewable
81 mg PO HS
CoQ-10 300 MG
PO DAILY
multivitamin
fiber
acetaminophen 325 mg Tablet
650 mg PO Q6HPRN PRN (Reason: mild pain,headache,temp >101F ) Qty: 0 0RF
sennosides-docusate sodium 8.6-50 mg Tablet
1 tab PO BID PRNQty: 0 0RF
lidocaine 4 % Adhesive Patch,Medicated
1 patch topical DAILY PRNQty: 0 0RF
gabapentin 100 mg Capsule
100 mg PO TID Qty: 30 0RF
ibuprofen 200 mg tablet
600 mg PO Q6H PRN (Reason: Pain) Qty: 60 0RF
potassium chloride [Klor-Con M20] 20 mEq tablet,ER particles/crystals
20 meq PO DAILY Qty: 5 0RF
furosemide [Lasix] 40 mg tablet
40 mg PO DAILY Qty: 5 0RF
Referrals:
Reid Ordaz MD [Family Provider] -
Daniel Ferraro MD [Active] - Follow up in 5-7 days
Activity Restrictions/Additional Instructions:
You came to the emergency department today with concerns of atrial fibrillation. Here you had a reassuring workup otherwise. Please take the prescribed medications twice daily and follow-up closely with cardiology. Return to the emergency
department any worsening, new or concerning symptoms.
Interventions
Interventions:
*Risk Screen - Suicide Last Done: 05/30/24 16:41
*General Assessment Last Done: 05/30/24 16:41
*Neglect/Abuse Screening Last Done: 05/30/24 16:41
ED- Fall Risk Assessment Last Done: 05/30/24 19:53
*ED COVID-19 Vaccine History Last Done: 05/30/24 16:41
*Nursing Disposition Last Done: 05/30/24 22:59
ED- Cardiac Assessment Last Done: 05/30/24 19:53
ED- Pulmonary Assessment Last Done: 05/30/24 19:53
Discharge Date and Time
Discharge Date/Time: 05/30/24 23:00
Print Language: NAURUAN
[2024-05-30] MEDS: ELIQUIS 5 MG PO (22:12)
[2024-05-30] MEDS: LOPRESSOR 12.5 MG PO (22:12)
== END 2024-05-30 23:00 | disposition home or self-care (01) ==
LOC: EMR 16:36
PROVIDERS: EMERGENCY PHYSICIAN Emergency Medicine; FAMILY PHYSICIAN Family Medicine
DX: I48.91 Unspecified atrial fibrillation (principal); I25.10 Atherosclerotic heart disease of native coronary artery without angina pectoris; I10 Essential (primary) hypertension; E78.00 Pure hypercholesterolemia, unspecified; E11.9 Type 2 diabetes mellitus without complications; G47.33 Obstructive sleep apnea (adult) (pediatric); I34.0 Nonrheumatic mitral (valve) insufficiency; Z79.01 Long term (current) use of anticoagulants; Z95.5 Presence of coronary angioplasty implant and graft
CPT/HCPCS: 99283; 71046; 80053; 84484; 85025; 93005; 93306

== ENCOUNTER → 2024-06-23 13:59 | Outpatient (REF) | payer OTHER, SELFPAY ==
[2024-06-23 15:32] LABS: HDL Cholesterol 47 mg/dl; LDL Cholesterol, Calculated 43 mg/dl; Total Cholesterol 108 mg/dl (50-199); Triglyceride 93 mg/dl (10-149); Very Low Density Lipoprotein 18 mg/dl (0-30)
== END ==
LOC: REG 13:59
PROVIDERS: ATTENDING PHYSICIAN Internal Medicine Cardiovascular Disease; FAMILY PHYSICIAN Family Medicine
DX: Z95.2 Presence of prosthetic heart valve (principal)
CPT/HCPCS: 36415; 80061

== ENCOUNTER → 2024-06-30 08:28 | Outpatient (REF) | payer OTHER, SELFPAY | LOC: RCS 08:28 | PROVIDERS: ATTENDING PHYSICIAN Nurse Practitioner Gerontology; FAMILY PHYSICIAN Family Medicine | DX: Z98.890 Other specified postprocedural states (principal) | CPT/HCPCS: 93308; 93321; 93325 ==

== ENCOUNTER 2024-07-08 08:47 | Outpatient (RCR) | payer OTHER, SELFPAY ==
[2024-06-23 12:51] LABS: Glucose - Point of Care 90 mg/dl (70-99)
[2024-06-23 13:48] LABS: Glucose - Point of Care 92 mg/dl (70-99)
[2024-06-24 06:45] LABS: Glucose - Point of Care 99 mg/dl (70-99)
[2024-06-24 07:37] LABS: Glucose - Point of Care 96 mg/dl (70-99)
[2024-06-26 06:33] LABS: Glucose - Point of Care 103 mg/dl (70-99)
[2024-06-26 07:26] LABS: Glucose - Point of Care 99 mg/dl (70-99)
[2024-06-29 06:38] LABS: Glucose - Point of Care 92 mg/dl (70-99)
[2024-06-29 07:30] LABS: Glucose - Point of Care 99 mg/dl (70-99)
[2024-07-01 06:30] LABS: Glucose - Point of Care 97 mg/dl (70-99)
[2024-07-01 07:29] LABS: Glucose - Point of Care 95 mg/dl (70-99)
[2024-07-03 06:33] LABS: Glucose - Point of Care 103 mg/dl (70-99)
[2024-07-03 07:34] LABS: Glucose - Point of Care 108 mg/dl (70-99)
[2024-07-06 07:10] LABS: Glucose - Point of Care 100 mg/dl (70-99)
== END 2024-07-08 23:59 | disposition home or self-care (01) ==
LOC: CRHB 08:47
PROVIDERS: ATTENDING PHYSICIAN Internal Medicine Cardiovascular Disease
DX: I25.10 Atherosclerotic heart disease of native coronary artery without angina pectoris (principal); Z95.2 Presence of prosthetic heart valve; Z95.5 Presence of coronary angioplasty implant and graft
CPT/HCPCS: 82962; G0422; G0423

== ENCOUNTER 2024-08-07 08:41 | Outpatient (RCR) | payer OTHER, SELFPAY ==
[2024-07-13 07:38] LABS: Glucose - Point of Care 100 mg/dl (70-99)
== END 2024-08-07 23:59 | disposition home or self-care (01) ==
LOC: CRHB 08:41
PROVIDERS: ATTENDING PHYSICIAN Internal Medicine Cardiovascular Disease
DX: I25.119 Atherosclerotic heart disease of native coronary artery with unspecified angina pectoris (principal); Z95.2 Presence of prosthetic heart valve
CPT/HCPCS: 82962; G0422; G0423

== ENCOUNTER 2024-09-07 08:45 | Outpatient (RCR) | payer OTHER, SELFPAY | END 2024-09-07 23:59 | disposition home or self-care (01) | LOC: CRHB 08:45 | PROVIDERS: ATTENDING PHYSICIAN Internal Medicine Cardiovascular Disease | DX: Z95.2 Presence of prosthetic heart valve (principal); I25.10 Atherosclerotic heart disease of native coronary artery without angina pectoris (principal); Z95.5 Presence of coronary angioplasty implant and graft | CPT/HCPCS: G0422 ==

== ENCOUNTER 2024-09-14 08:52 | Outpatient (RCR) | payer OTHER, SELFPAY | END 2024-09-14 23:59 | disposition home or self-care (01) | LOC: CRHB 08:52 | PROVIDERS: ATTENDING PHYSICIAN Internal Medicine Cardiovascular Disease; FAMILY PHYSICIAN Family Medicine | DX: Z95.2 Presence of prosthetic heart valve (principal) | CPT/HCPCS: G0422; G0423 ==

== ENCOUNTER → 2024-11-09 15:23 | Outpatient (REF) | payer OTHER, SELFPAY | LOC: RAD 15:23 | PROVIDERS: ATTENDING PHYSICIAN Physical Medicine & Rehabilitation Pain Medicine; FAMILY PHYSICIAN Family Medicine | DX: M54.2 Cervicalgia (principal) | CPT/HCPCS: 72052 ==

== ENCOUNTER → 2025-06-02 16:50 | Outpatient (REF) | payer OTHER, SELFPAY | LOC: RCS 16:50 | PROVIDERS: ATTENDING PHYSICIAN Thoracic Surgery (Cardiothoracic Vascular Surgery); FAMILY PHYSICIAN Family Medicine | DX: Z95.1 Presence of aortocoronary bypass graft (principal) | CPT/HCPCS: 93306 ==